=== PATIENT | female | born 1955 | race Caucasian/White ===

== ENCOUNTER → 2024-08-14 | Outpatient (CLI) | payer MEDICARE, SELFPAY ==
--- NOTE | 2024-08-14 13:15 | XR_ITS ---
Examination: Screening digital mammography, bilateral Computer aided detection 3-D breast Tomosynthesis, bilateral Date and time of exam: August 14, 2024 1248 hours Compared to mammograms dating to September 08, 2022 Indication: Screening Technique: Nonmagnified MLO, CC views of the breasts to been obtained, reconstructed from 3-D Tomosynthesis images. R2 computer aided detection program utilized for evaluation of suspicious masses and/or abnormal calcifications. 3-D Tomosynthesis images obtained. Findings: The breasts are heterogeneously dense, which may obscure small masses Benign calcifications. No interval suspicious masses Impression: BI-RADS category II: Benign Findings. Recommend 1 year follow-up mammogram.
== END | disposition home or self-care (01) ==
LOC: CDIM 12:37
PROVIDERS: Referring Provider Family Medicine; Visit Provider Family Medicine
DX: Z12.31 Encounter for screening mammogram for malignant neoplasm of breast (principal); R92.323 Mammographic fibroglandular density, bilateral breasts; R92.1 Mammographic calcification found on diagnostic imaging of breast
CPT/HCPCS: 77063; 77067

== ENCOUNTER 2024-10-12 23:34 | Inpatient (IN) | payer MEDICARE, SELFPAY ==
--- NOTE | 2024-10-13 | XR_ITS ---
Examination: Abdomen AP single view Technique: AP portable supine abdomen, single view Exam date and time: October 13, 2024 1343 hrs. Indications: Nine-hour delayed film post small bowel series today Findings: Contrast in distended small bowel loops Impression: Small bowel obstruction pattern Recommend follow-up films 4:00 PM 6:00 PM, 8:00 PM
--- NOTE | 2024-10-13 | XR_ITS ---
Examination: Abdomen AP single view Technique: AP portable supine abdomen, single view Exam date and time: October 13, 2024, 1752 hours INDICATIONS: 13 hour delayed film for small bowel series today, abdominal pain and distention discrete FINDINGS: High-grade mechanical small bowel obstruction IMPRESSION: High-grade mechanical small bowel obstruction, recommend follow-up films 10:00 PM, 2:00 AM, 6:00 AM
--- NOTE | 2024-10-13 | XR_ITS ---
Examination: Abdomen AP single view Technique: AP portable supine abdomen, single view Exam date and time: October 13, 2024, 1549 hrs. Indications: 11 hour delayed film post small bowel series Findings: Contrast distended small bowel loops Impression: Small bowel obstruction pattern, additional delayed films will be obtained
--- NOTE | 2024-10-13 | XR_ITS ---
Examination: Abdomen AP single view Technique: AP portable supine abdomen, single view Exam date and time: October 13, 2024, 1748 hours INDICATIONS: 15 hour delayed film for small bowel series today abdominal pain and distention this week FINDINGS: Multiple contrasted distended small bowel loops IMPRESSION: High-grade mechanical small bowel obstruction
[2024-10-13 00:05] VITALS: BP 146/80; PULSE 78; RESP 22; TEMP 36.4; O2SAT 100
--- NOTE | 2024-10-13 00:11 | EKG_ITS ---
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
--- NOTE | 2024-10-13 00:15 | PD.EDRME ---
Rapid Medical Screening Exam RME Arrival date/time: 10/12/24 23:34 Chief Complaint: Abdominal Pain Time Seen by Provider: 10/12/24 23:37 Vital signs: Vital Signs Temperature 97.5 F 10/13/24 00:05 Pulse Rate 78 10/13/24 00:05 Respiratory Rate 22 H 10/13/24 00:05 Blood Pressure 146/80 H 10/13/24 00:05 Pulse Oximetry (%) 100 10/13/24 00:05 Oxygen Delivery Method Room Air 10/13/24 00:05 E Narrative: Abdominal pain, nausea/vomiting started tonight. Hx hiatal hernia.
--- NOTE | 2024-10-13 00:19 | XR_ITS ---
Examination: CT abdomen with intravenous contrast CT pelvis with intravenous contrast 2-D coronal reconstructions 2-D sagittal reconstructions Date and time of exam:October 13, 2024 0221 hours INDICATIONS: Onset abdominal pain today. CTDI: vol (mGy) 7. DLP: (mGycm) 371. Technique: Multiple axial sections of the abdomen and pelvis have been obtained. 64 slice high-resolution scanner used. 3 mm axial sections have been obtained, post intravenous injection of 60 cc Isovue 370 2-D sagittal, coronal reconstructions obtained. Low dose protocols were performed. One or more of the following dose reduction techniques were used; automated exposure control, adjustment of the mA and/or KV according to patient size, use of iterative reconstruction technique. Findings: Mild fluid subcapsular to the liver and spleen, no liver or splenic lesion No gallstones No pancreatic or adrenal mass Mild bilateral renal parenchymal scar formation Aorta normal size Abnormal multiple fluid distended small bowel loops extending to ileal level Normal appendix No diverticulitis Mild free fluid in the pelvis Urinary bladder wall thickening up to 4 mm No pelvic mass Prominent osteopenia with diffuse advanced lumbar degenerative disc disease IMPRESSION: Mild ascites Small bowel obstruction ileal level
--- NOTE | 2024-10-13 00:30 | PC.NURSE ---
MEDS verified ACTIVE AT 0030
[2024-10-13] MEDS: KETOROLAC INJ 60 MG/2 ML VIAL 30 MG IM (00:34)
[2024-10-13 00:37] LABS: Basophils # (Auto) 0.0 Thou/mm3 (0.0-0.2); Basophils % (Auto) 0 % (0-2.5); Eosinophils # (Auto) 0.1 Thou/mm3 (0.0-0.5); Eosinophils % (Auto) 1 % (0-10); Hematocrit 39.0 % (36.0-46.0); Hemoglobin 13.4 g/dL (12.0-16.0); Immature Granulocytes Auto 0.02 Thou/mm3 (0.00-0.00); Lymphocytes # (Auto) 2.4 Thou/mm3 (1.0-4.8); Lymphocytes % (Auto) 23 % (10-50); Mean Corpuscular HGB Conc 34.4 g/dl (31.0-37.0); Mean Corpuscular Hemoglobin 28.2 pg (25.0-35.0); Mean Corpuscular Volume 82 fL (80-100); Monocytes # (Auto) 0.5 Thou/mm3 (0.0-0.8); Monocytes % (Auto) 5 % (0-12); Neutrophils # (Auto) 7.4 Thou/mm3 (1.8-7.7); Neutrophils % (Auto) 71 % (37-80); Nucleated Red Blood Cell # 0.00 Thou/mm3 (0.00-0.00); Nucleated Red Blood Cell % 0 /100 WBC (0); Platelet Count 230 Thou/mm3 (140-440); RDW Standard Deviation 43.5 fL (36.4-46.3); Red Blood Count 4.76 Miln/mm3 (4.00-5.20); White Blood Count 10.5 Thou/mm3 (3.6-11.0)
[2024-10-13 01:06] LABS: Alanine Aminotransferase 42 U/L (10-49); Albumin, Serum 4.7 gm/dL (3.4-4.8); Albumin/Globulin Ratio 2.2 (1.2-2.2); Alkaline Phosphatase 84 U/L (46-116); Anion Gap 9 (7-16); Aspartate Amino Transferase 38 U/L (0-34); BUN/Creatinine Ratio 13 Ratio (12-20); Bilirubin,Total 1.9 mg/dL (0.3-1.2); Blood Urea Nitrogen 16 mg/dL (9-23); Calcium 10.3 mg/dL (8.3-10.6); Calcium (Corrected) 10.3 mg/dL (8.5-10.1); Carbon Dioxide 26.2 mMol/L (20.0-31.0); Chloride 104 mMol/L (98-107); Creatinine (Component) 1.2 mg/dL (0.6-1.3); Globulin 2.1 gm/dL (2.3-3.5); Glucose 145 mg/dL (74-106); Lipase 41 U/L (12-53); Osmolality,Calculated 281 (275-295); Potassium 4.1 mMol/L (3.4-5.1); Sodium 139 mMol/L (136-145); Total Protein 6.8 gm/dL (5.7-8.2); Troponin I < 0.020 ng/mL (0.0-0.045); eGFR 49 See Note
--- NOTE | 2024-10-13 01:52 | XR_ITS ---
Examination: Abdominal series 3 views including upright PA chest TECHNIQUE: Upright PA chest, AP upright and supine abdomen total 3 views Date and time: October 13, 2024, 0245 hours INDICATIONS: Onset abdominal pain today FINDINGS: Normal heart size Lungs are clear. Moderate stool throughout the colon. No obstruction Prominent thoracolumbar levoscoliosis IMPRESSION: Nonobstructive bowel gas pattern
--- NOTE | 2024-10-13 03:29 | PRELIM_ITS ---
CT scan of the abdomen and pelvis with intravenous contrast (axial sections with sagittal and coronal reformats) October 13, 2024 at 0221 hours Clinical History: Abdominal pain, vomiting. Comparison: No prior study is available for comparison. Findings: The liver, gallbladder, pancreas, spleen, kidneys and adrenals are unremarkable. A qrqav-gz-vwuihtno hiatal hernia is present. There is mild wall thickening of the distal esophagus and stomach, likely due to reflux etiology. The small bowel loops are dilated maximum calibre measuring 2.8 cm, demonstrating fluid levels with possible transition at mid/distal ileum (axial image 133/235). There is mild mesenteric edema. The distal small bowel loops are nondilated. No evidence of bowel wall pneumatosis.The appendix is within normal limits (axial images 142-150/235). There are occasional colonic diverticula without evidence of diverticulitis. There is no mesenteric or retroperitoneal adenopathy.A small fat-containing umbilical hernia is present. The urinary bladder is incompletely distended at the time of the examination and appears mildly thick walled. The uterus and adnexa are unremarkable. There is mild ascites. There is no free air. Degenerative changes are identified in the spine. Mild bibasilar dependent atelectasis is present. Please note that evaluation of bowel loops is limited due to absence of oral contrast. Impression: 1. Findings suggestive of small bowel obstruction with possible transition at mid/distal ileum. 2. Fbkff-om-bfvbmmsy hiatal hernia with possible esophageal reflux. 3. Mild ascites. 4. Other findings as described above. Suggest clinical correlation and follow up accordingly. Discussion Details: Results verbally communicated to : NATALIO Faulkner at 03:17 AM 10/13/2024 Report Electronically Signed By: Nilesh Olivares 10/13/2024 3:28:58 AM [EST]
[2024-10-13 04:07] VITALS: BP 116/81; PULSE 71; RESP 15; TEMP 36.7; O2SAT 98
--- NOTE | 2024-10-13 04:16 | EDNOTE_ITS ---
ED Abdominal Pain RME/HPI General Chief Complaint: Abdominal Pain Stated complaint: ABD PAIN, N/V Time seen by provider: 10/12/24 23:37 Arrival date/time: 10/12/24 23:34 RME / HPI RME / HPI narrative: Abdominal pain, nausea/vomiting started tonight. Hx hiatal hernia. DR ROSARIO MAIN ED EVALUATION: 68 y/o female with Hx of Type II DM, HTN, Hiatal Hernia and SHx of Hysterectomy and presents to ED c/o severe abdominal pain x 10 hours and constipation, nausea, and vomiting x 6 hours. She was recebtly started on Ozempic and attributes her constipation to the medication. Patient began passing gas after arriving to ED. Patient denies bloody stool, fever or any other associated symptoms or aggravating factors. No modifying factors, no radiation, no migration. No pain reported overall. Related Data Previous Rx's ?Medication ?Instructions ?Recorded meclizine 25 mg tablet 25 mg PO Q6HR PRN dizziness #30 08/05/22 tabs Allergies Allergy/AdvReac Type Severity Reaction Status Date / Time No Known Allergies Allergy Verified 10/12/24 23:36 Review of Systems Review of Systems Systems Reviewed: All systems reviewed, normal except as documented Past Medical History Past Medical History CARDIAC: Positive Hypercholesterolemia and Hypertension GASTROINTESTINAL: Positive Hiatal Hernia ENDOCRINE: Positive Diabetes Mellitus Type 2 Surgical History SURGICAL: Positive Hysterectomy and Section ED Exam Narrative Physical exam: GENERAL APPEARANCE: alert and oriented x 4, well-developed, well-nourished, no acute distress VITALS: All vitals were reviewed and the pulse ox is 98% on room air, which is normal according to my interpretation. HEENT: Normocephalic, atraumatic; pupils equal, round, reactive to light; EOMI; mucous membranes pink, moist; oropharynx clear NECK: Supple LUNGS: CTABL; no wheezes, no rales, no rhonchi HEART: Regular rate, regular rhythm; normal S1, S2; no murmurs ABDOMEN: distended; normal BS; soft, no tenderness, no guarding, no rebound; no masses, no organomegaly, no hernia BACK: no CVA tenderness EXTREMITIES: atraumatic; no edema NEUROLOGIC: awake; alert and oriented x4; cranial nerves II-XII grossly intact; no focal sensory or motor deficits PSYCHIATRIC: appropriate mood and affect SKIN: warm, dry, normal color; no rashes Course Quality Measures none Orders Category Date Time Status Admit to Inpatient Status Routine Admission 10/13/24 04:50 Active Patient Condition Routine Admission 10/13/24 04:50 Ordered Aspiration precautions NOW Care 10/13/24 04:[address] Screening NOW Care 10/13/24 00:19 Active EKG (ED ONLY) *Do not use* NOW Care 10/13/24 00:11 Completed Flu & Pneumonia Vaccine Screen ONCE Care 10/13/24 04:49 Active NPO NOW Care 10/13/24 04:50 Active Notify provider NEEDED Care 10/13/24 04:50 Active Sequential Compression Device QSHIFT Care 10/13/24 04:49 Active Consult to General Surgery Stat Cons 10/13/24 04:53 Ordered Diet NPO (NOW) Diet 10/13/24 04:[address] abdomen pelvis w con Stat Exams 10/13/24 00:19 Taken EKG (ED Only) Stat Exams 10/13/24 00:11 Draft XR abdomen series w chest 1V Stat Exams 10/13/24 01:52 Taken XR small bowel single contrast Stat Exams 10/13/24 04:49 Ordered CBC AM DRAW Lab 10/13/24 05:00 Ordered CBC AM DRAW Lab 10/14/24 05:00 Ordered CBC AM DRAW Lab 10/15/24 05:00 Ordered CBC Stat Lab 10/13/24 00:27 Completed CMP [Comprehensive Metabolic Panel] Stat Lab 10/13/24 00:27 Completed Comprehensive Metabolic Panel AM DRAW Lab 10/13/24 05:00 Ordered Comprehensive Metabolic Panel AM DRAW Lab 10/14/24 05:00 Ordered Comprehensive Metabolic Panel AM DRAW Lab 10/15/24 05:00 Ordered Lipase Stat Lab 10/13/24 00:27 Completed Magnesium AM DRAW Lab 10/13/24 05:00 Ordered Magnesium AM DRAW Lab 10/14/24 05:00 Ordered Magnesium AM DRAW Lab 10/15/24 05:00 Ordered Phosphorous AM DRAW Lab 10/14/24 05:00 Ordered Phosphorous AM DRAW Lab 10/15/24 05:00 Ordered Phosphorous AM DRAW Lab 10/16/24 05:00 Ordered Troponin I Stat Lab 10/13/24 00:27 Completed UA [Urinalysis] Stat Lab 10/13/24 04:11 Completed Acetaminophen Tab [Tylenol Tab] Med 10/13/24 04:49 Active 1,000 mg PO Q6H PRN Acetaminophen Tab [Tylenol Tab] Med 10/13/24 04:49 Active 650 mg PO Q6H PRN Ketorolac Inj [Toradol Inj] Med 10/13/24 00:22 Discontinued 30 mg IM X1 ONE Morphine Inj Med 10/13/24 04:49 Active 2 mg IVP Q4H PRN Ondansetron Inj [Zofran Inj] Med 10/13/24 04:49 Active 4 mg IVP Q6H PRN Ondansetron Odt [Zofran Odt] Med 10/13/24 00:22 Discontinued 4 mg PO X1 ONE Sodium Chloride 0.9% 1000 ml [Ns] 1,000 ml Med 10/13/24 05:00 Active IV 75 mls/hr Sodium Chloride 0.9% 1000 ml [Ns] 1,000 ml Med 10/13/24 04:26 Active IV 999 mls/hr Code Status Routine Oth 10/13/24 04:49 Ordered Vital Signs Vital signs: Vital Signs Temperature 97.5 F 10/13/24 00:05 Pulse Rate 78 10/13/24 00:05 Respiratory Rate 22 H 10/13/24 00:05 Blood Pressure 146/80 H 10/13/24 00:05 Pulse Oximetry (%) 100 10/13/24 00:05 Oxygen Delivery Method Room Air 10/13/24 00:05 Abdominal Pain MDM MDM Narrative MDM Narrative:: Scribe Attestation: IMargoth am scribing for and in the presence of Dr. Rosario. Provider Notation: Although this document has been carefully reviewed, there may still be some phonetic and other typographical errors.? These errors are purely grammatical due to imperfections in the software program and should not be construed in any way to? compromise the substance of the patient's medical care during this visit. Patient data External records reviewed:: [facility] previous records (Reviewed prior ED records from 08/05/22. Patient was seen for Benign paroxysmal positional vertigo.) Clinical information provided by:: patient Social determinants that could affect healthcare access:: none Patient has the following chronic illnesses:: Hypercholesterolemia, Hypertension, Hiatal Hernia, Diabetes Mellitus Type 2 How is presenting disease/condition affected by chronic disease/condition?: exacerbated by Evaluation data The following diagnostics were reviewed and interpreted by me:: lab results, radiology exam(s) and EKG tracing(s) (0038: EKG manual reading, my interpretation: sinus rhythm, rate: 77 bpm, moderate artifacts, non-specific T- wave abnormalities, no acute ischemic changes.) Lab and/or radiology exams considered but not ordered:: None Interpretation Summary: RADIOLOGY Chest/Abdomen X-Ray: Pending official radiology report. Abdomen/Pelvis CT: CT scan of the abdomen and pelvis with intravenous contrast (axial sections with sagittal and coronal reformats) October 13, 2024 at 0221 hours Clinical History: Abdominal pain, vomiting. Comparison: No prior study is available for comparison. Findings: The liver, gallbladder, pancreas, spleen, kidneys and adrenals are unremarkable. A almqt-xt-fqnsruyj hiatal hernia is present. There is mild wall thickening of the distal esophagus and stomach, likely due to reflux etiology. The small bowel loops are dilated maximum calibre measuring 2.8 cm, demonstrating fluid levels with possible transition at mid/distal ileum (axial image 133/235). There is mild mesenteric edema. The distal small bowel loops are nondilated. No evidence of bowel wall pneumatosis.The appendix is within normal limits (axial images 142-150/235). There are occasional colonic diverticula without evidence of diverticulitis. There is no mesenteric or retroperitoneal adenopathy.A small fat-containing umbilical hernia is present. The urinary bladder is incompletely distended at the time of the examination and appears mildly thick walled. The uterus and adnexa are unremarkable. There is mild ascites. There is no free air. Degenerative changes are identified in the spine. Mild bibasilar dependent atelectasis is present. Please note that evaluation of bowel loops is limited due to absence of oral contrast. Impression: 1. Findings suggestive of small bowel obstruction with possible transition at mid/distal ileum. 2. Htcvu-gm-nvhohyop hiatal hernia with possible esophageal reflux. 3. Mild ascites. 4. Other findings as described above. Suggest clinical correlation and follow up accordingly. Discussion Details: Results verbally communicated to : NATALIO Faulkner at 03:17 AM 10/13/2024 Report Electronically Signed By: Nilesh Olivares 10/13/2024 3:28:58 AM [EST] Medications / Prescriptions Medications or Prescriptions considered but not ordered:: None Medication administrations:: Medication Administration History Acetaminophen (Acetaminophen 325 Mg Tablet) 650 mg PO Q6H PRN PRN Reason: Fever >100.4 Stop: 11/12/24 04:48 Acetaminophen (Acetaminophen 325 Mg Tablet) 1,000 mg PO Q6H PRN PRN Reason: PAIN SCALE 1-3 (mild Stop: 11/12/24 04:48 Dextrose (Dextrose 50%-Water Inj 50 Ml Syringe) 25 ml IV Q15MIN PRN PRN Reason: BG 50-70 responsive npo pt Stop: 11/12/24 04:54 Dextrose (Dextrose 50%-Water Inj 50 Ml Syringe) 50 ml IV Q15MIN PRN PRN Reason: BG <50 OR BG <70 & pt unresponsive Stop: 11/12/24 04:54 Glucagon (Glucagon Inj 1 Mg Vial) 1 mg IM Q15MIN PRN PRN Reason: BG <70, and no IV access Sodium Chloride (Ns) 1,000 mls @ 999 mls/hr IV .Q1H1M ONE Stop: 10/13/24 05:26 Last Admin: 10/13/24 04:43 Dose: 999 mls/hr Documented By: PINOR Sodium Chloride (Ns) 1,000 mls @ 75 mls/hr IV .[id number] SEBASTIÁN Stop: 11/12/24 04:59 Insulin Human Lispro (Insulin Lispro (Admelog) 1 Unit/0.01 Ml Unit) 0 unit SC Q6HR SEBASTIÁN; Protocol Stop: 11/12/24 05:59 Morphine Sulfate (Morphine Sulf Inj 10 Mg/Ml Vial) 2 mg IVP Q4H PRN PRN Reason: PAIN SCALE 4-10(Mod-Sev Stop: 10/18/24 04:48 Ondansetron HCl (Ondansetron Inj 2 Mg/Ml Inj 2 Ml) 4 mg IVP Q6H PRN; Protocol PRN Reason: NAUSEA OR VOMITING Stop: 11/12/24 04:48 Discontinued Medications Ketorolac Tromethamine (Ketorolac Inj 60 Mg/2 Ml Vial) 30 mg IM X1 ONE Stop: 10/13/24 00:23 Last Admin: 10/13/24 00:34 Dose: 30 mg Documented By: IVY Ondansetron HCl (Ondansetron Odt 4 Mg Tabrap) 4 mg PO X1 ONE; Protocol Stop: 10/13/24 00:23 Last Admin: 10/13/24 00:34 Dose: Not Given Documented By: IVY Non-Admin Reason: Patient Refused See above Consultations Consultation(s) initiated? (list below): Yes Consultation #1 (Physician, Specialty, Details): Discussed with Dr. Dumont for admission. Reviewed the patient?s HPI, PMHx, lab and/or radiology results. Discussed treatment plan. Will consult an admission to the hospitalist. Time: 04:20 Diagnosis Differential diagnosis abdominal pain: abdominal pain, acute appendicitis, calculus of kidney, constipation, diverticulitis, gastroenteritis, pancreatitis and small bowel obstruction Most likely diagnosis given after review of the tests above:: Small bowel obstruction Admission Indicated Admission indicated?: indicated Explain why admission is indicated or not indicated:: Small bowel obstruction Admission Request Was there a request for admission?: Yes Admission Attestation Admission request attestation: Discussed case with [] from Hospitalist service regarding admission. Discussed patients ED course, exam findings, labs, and radiology results. The Hospitalist [agrees,declines] to accept the patient for admission. Disposition Plan Disposition Plan: Admit Discharge Plan Plan Patient Disposition: Admit Acute Care w/in Hospital Problem List Clinical Impression: Small bowel obstruction
[2024-10-13 04:17] LABS: Collection Type, Urine Clean Catch
[2024-10-13 04:43] LABS: Bilirubin,Urine Negative (Negative); Blood,Urine Negative (Negative); Clarity,Urine Clear (Clear/Hazy); Color,Urine Yellow (Lt Yel-Yel); Glucose, Urine Negative (Negative); Ketones,Urine 1+ (Negative); Leukocyte Esterase,Urine Positive (Negative); Nitrite,Urine Negative (Negative); PH,Urine 7.0 (5.0-7.0); Protein,Urine Trace (Neg - Trace); RBC,Urine 6 /hpf (0-3); Squamous Epithelial Cell,Urine 2 /hpf (0-5); Urobilinogen,Urine Negative mg/dL (0.0-1.0); WBC,Urine 42 /hpf (0-5)
[2024-10-13] MEDS: SODIUM CHLORIDE 0.9% 1000 ML 1,000 ML 999 ML IV (04:43)
--- NOTE | 2024-10-13 04:49 | XR_ITS ---
Examination: Small bowel series with KUB AP abdomen 6 views Date and time: October 13, 2024, 0521 hours INDICATIONS: Abdominal pain and distention this week, small bowel obstruction on CT abdomen and pelvis October 13, 2024 0221 hours TECHNIQUE AND FINDINGS: Patient received 120 cc Gastrografin, AP abdomen films, immediate, 30 minutes, 1 hour,. Retrocardiac gastric hernia Distended small bowel loops extending to ileal level on the one-hour film IMPRESSION: Small bowel obstruction pattern. Recommend follow-up abdomen films 9:00 AM, 11:00 AM, 1:00 PM
[2024-10-13 04:53] LABS: Specific Gravity,Urine <= 1.005 (1.001-1.035)
--- NOTE | 2024-10-13 04:54 | PD.RESHP ---
Documentation for date of: 10/13/24 HPI History of Present Illness Chief complaint: Abdominal pain History of present illness: 68-year-old female with past medical history of diabetes, hiatal hernia, hypertension, hyperlipidemia who presented to the ED due to abdominal pain. Patient states that around 5-6 PM October 12, 2024 she developed 12 out of 10 abdominal pain as well as nausea and vomiting. At first patient attributed the pain to her hiatal hernia however pain got so bad that she decided to come to the ER. Patient states that since she started Ozempic on March 2024 she has been unable to have bowel movements she states she usually goes once a week. Due to the pain and vomiting patient decided to come to the ER. While in the ER patient had a hard bowel movement around 3 AM 10/13/2024 and her last episode of vomiting was around midnight. She denies any fever, chills, shortness of breath, palpitations, chest pain, recent travel, sick contacts. ED course: ED vitals: BP 146/80, HR 78, RR 22, saturating 100% on room air ED labs: CBC unremarkable, T. bili 1.9, AST 38, UA negative, CT scan abdomen pelvis shows small bowel obstruction In the ED patient received 1 L NS, Toradol PMHx: As above SX Hx: Hysterectomy, C-sections, toe surgery Social Hx: Denies cigarette use, denies illicit substances including THC, denies alcohol use FH X: Unknown Review of Systems Review of Systems Systems Reviewed: All systems reviewed, normal except as documented Narrative Review of Systems: All 12 systems reviewed and found negative unless otherwise stated HPI Exam Vital Signs Temp Pulse Resp BP Pulse Ox O2 Del Method 98.1 F 71 15 116/81 98 Room Air 10/13/24 04:07 10/13/24 04:07 10/13/24 04:07 10/13/24 04:07 10/13/24 04:07 10/13/24 04:07 Narrative Exam Physical Exam GENERAL: NAD, AAOx3 HEENT: Moist mucosa. Eyes open, symmetrical, & clear CARDIO: Heart RRR, no obvious murmurs PULM: No noted coughing/dyspnea CTA B/L, no R/W/R GI: Abdomen soft, distended, pain on palpation epigastric region. Hypoactive bowel sounds SKIN/MSK/EXT: No wounds/rashes/edema/amputations, no pain on palpation. Pedal pulses present B/L NEURO: AAOx3, no focal neuro deficits, able to move all 4 extremities Results: Labs 10/13/24 05:15 10/13/24 00:27 Labs: Short CBC 10/13/24 Range/Units 00:27 WBC 10.5 (3.6-11.0) Thou/mm3 Hgb 13.4 (12.0-16.0) g/dL Hct 39.0 (36.0-46.0) % Plt Count 230 (140-440) Thou/mm3 BMP 10/13/24 00:27 Sodium 139 Potassium 4.1 Chloride 104 Carbon Dioxide 26.2 BUN 16 Creatinine 1.2 Glucose 145 H Calcium 10.3 Cardiac Enzymes 10/13/24 Range/Units 00:27 Troponin I < 0.020 (0.0-0.045) ng/mL Liver Function 10/13/24 Range/Units 00:27 Total Bilirubin 1.9 H (0.3-1.2) mg/dL AST 38 H (0-34) U/L ALT 42 (10-49) U/L Alkaline Phosphatase 84 (46-116) U/L Albumin 4.7 (3.4-4.8) gm/dL Urine 10/13/24 Range/Units 04:11 Urine Color Yellow (Lt Yel-Yel) Urine Clarity Clear (Clear/Hazy) Urine pH 7.0 (5.0-7.0) Ur Specific [place] <= 1.005 (1.001-1.035) Urine Protein Trace (Neg - Trace) Urine Glucose (UA) Negative (Negative) Quality Measures Quality Measures none Advance care planning discussed with:: patient and spouse Medications Home Medications and Allergies Allergies Allergy/AdvReac Type Severity Reaction Status Date / Time No Known Allergies Allergy Verified 10/12/24 23:36 Visit Medications Sodium Chloride (Ns) 1,000 mls @ 999 mls/hr IV .Q1H1M ONE Stop: 10/13/24 05:26 Last Admin: 10/13/24 04:43 Dose: 999 mls/hr Discontinued Medications Ketorolac Tromethamine (Ketorolac Inj 60 Mg/2 Ml Vial) 30 mg IM X1 ONE Stop: 10/13/24 00:23 Last Admin: 10/13/24 00:34 Dose: 30 mg Ondansetron HCl (Ondansetron Odt 4 Mg Tabrap) 4 mg PO X1 ONE; Protocol Stop: 10/13/24 00:23 Last Admin: 10/13/24 00:34 Dose: Not Given Assessment & Plan Plan 68-year-old female with past medical history of diabetes, hiatal hernia, hypertension, hyperlipidemia who presents to the ED with abdominal pain. #SBO Likely secondary to surgical adhesions Last bowel movement: October 13, 2024 at 3 AM Last meal: October 12, 2024 at 5 PM Last vomit: October 13, 2024, midnight Currently passing flatus or burping: No CT scan abdomen pelvis shows small bowel obstruction ? Zofran for nausea vomiting ? Gastrografin study ? IV fluids ? N.p.o. ? Pain control ? General Surgery consulted, appreciate recs #Diabetes mellitus type 2 Last A1c: 6.5, 2022 ? SSI ? Hypoglycemia protocol in place #Hypertension #Hyperlipidemia Health Maintenance: Disposition: MedSurg Fluids: NS Feeding: N.p.o. Thrombo prophylaxis: SCDs Gastric Ulcer prophylaxis: None CODE STATUS: Full code Case discussed with my attending Dr. Nara Bello MD PGY-1 Disclaimer: Despite multiple revisions, due to the dictation software being used, the document bellow may not be free of grammatical errors including phonetic/typographic errors. However, this does not deter from our commitment to providing health care in the patient's best interest in mind. Attending Provider Attestation/Addendum 68-year-old female with diabetes, hypertension, hyperlipidemia, hiatal hernia being admitted for partial small bowel obstruction. Check SBFT. I discussed with and supervised the resident physician who took care of this patient. I agree with the assessment and plan as above.
[2024-10-13 05:23] LABS: Basophils # (Auto) 0.0 Thou/mm3 (0.0-0.2); Basophils % (Auto) 0 % (0-2.5); Eosinophils # (Auto) 0.0 Thou/mm3 (0.0-0.5); Eosinophils % (Auto) 0 % (0-10); Hematocrit 34.5 % (36.0-46.0); Hemoglobin 11.8 g/dL (12.0-16.0); Immature Granulocytes Auto 0.03 Thou/mm3 (0.00-0.00); Lymphocytes # (Auto) 1.5 Thou/mm3 (1.0-4.8); Lymphocytes % (Auto) 21 % (10-50); Mean Corpuscular HGB Conc 34.2 g/dl (31.0-37.0); Mean Corpuscular Hemoglobin 28.2 pg (25.0-35.0); Mean Corpuscular Volume 83 fL (80-100); Monocytes # (Auto) 0.4 Thou/mm3 (0.0-0.8); Monocytes % (Auto) 5 % (0-12); Neutrophils # (Auto) 5.5 Thou/mm3 (1.8-7.7); Neutrophils % (Auto) 74 % (37-80); Nucleated Red Blood Cell # 0.00 Thou/mm3 (0.00-0.00); Nucleated Red Blood Cell % 0 /100 WBC (0); Platelet Count 193 Thou/mm3 (140-440); RDW Standard Deviation 44.1 fL (36.4-46.3); Red Blood Count 4.18 Miln/mm3 (4.00-5.20); White Blood Count 7.4 Thou/mm3 (3.6-11.0)
[2024-10-13 06:21] LABS: Glucose Estimated Average 105 mg/dL (80-131); Hemoglobin A1C 5.3 % Hgb (4.8-6.0)
[2024-10-13] MEDS: SODIUM CHLORIDE 0.9% 1000 ML 1,000 ML 75 ML IV (06:30)
--- NOTE | 2024-10-13 06:42 | PC.NURSE ---
Spoke to Dr. Chapman pt started vomiting. Provider putting orders in for for NG tube insertion. pt does not want nausea meds at this time.
[2024-10-13 06:56] LABS: Alanine Aminotransferase 35 U/L (10-49); Albumin, Serum 4.0 gm/dL (3.4-4.8); Albumin/Globulin Ratio 2.2 (1.2-2.2); Alkaline Phosphatase 70 U/L (46-116); Anion Gap 6 (7-16); Aspartate Amino Transferase 31 U/L (0-34); BUN/Creatinine Ratio 15 Ratio (12-20); Bilirubin,Total 1.6 mg/dL (0.3-1.2); Blood Urea Nitrogen 17 mg/dL (9-23); Calcium 9.4 mg/dL (8.3-10.6); Calcium (Corrected) 9.4 mg/dL (8.5-10.1); Carbon Dioxide 26.8 mMol/L (20.0-31.0); Chloride 107 mMol/L (98-107); Creatinine (Component) 1.1 mg/dL (0.6-1.3); Globulin 1.8 gm/dL (2.3-3.5); Glucose 109 mg/dL (74-106); Magnesium 2.1 mg/dL (1.6-2.6); Osmolality,Calculated 281 (275-295); Potassium 4.2 mMol/L (3.4-5.1); Sodium 140 mMol/L (136-145); Total Protein 5.8 gm/dL (5.7-8.2); eGFR 55 See Note
[2024-10-13] MEDS: ONDANSETRON INJ 2 MG/ML INJ 2 ML 4 MG IVP ×2 (07:46→22:14)
[2024-10-13] MEDS: MORPHINE SULF INJ 10 MG/ML VIAL 2 MG IVP ×2 (07:46→17:42)
[2024-10-13 08:15] VITALS: BMI 25.3
--- NOTE | 2024-10-13 09:00 | XR_ITS ---
Examination: Abdomen AP single view Technique: AP portable supine abdomen, single view Exam date and time: October 13, 2024, 0838 hrs. Indications: Abdominal pain and distention this week, forearm delayed film post small bowel series today Findings: Contrast distended small bowel loops Impression: Small bowel obstruction pattern. Recommend follow-up abdomen films 10:00 AM, 12 noon, 2:00 PM
--- NOTE | 2024-10-13 09:31 | PC.NURSE ---
Admitting Dr notified that pt refuses NG Tube. Pt has been educated to the risks of continued vomiting, aspiration and . Pt continues to refuse NG Tube
[2024-10-13] MEDS: cefTRIAXone/D5w 1gm IV premix 1 GM/50 ML BAG IV (10:24)
[2024-10-13 10:25] VITALS: BP 154/96; PULSE 85; RESP 15; TEMP 36; O2SAT 98
[2024-10-13 10:31] LABS: Lactate (Lactic Acid) 1.0 mMol/L (0.4-2.0)
--- NOTE | 2024-10-13 11:00 | XR_ITS ---
Examination: Abdomen AP single view Technique: AP portable supine abdomen, single view Exam date and time: October 13, 2024, 11:32 PM Indications: 6 hour delayed film post small bowel series today abdominal distention Findings: Significant small bowel obstruction pattern Impression: Significant small bowel obstruction pattern, multiple delayed films will be obtained
[2024-10-13 11:09] VITALS: BMI 25.2
[2024-10-13] MEDS: metroNIDAZOLE/NS 500 MG IVPB 500 MG/100 ML BAG 200 MG IV ×2 (11:25→21:32)
--- NOTE | 2024-10-13 12:38 | ESCONSULT_ITS ---
HPI Consult details Consult date: 10/13/24 Reason for consultation narrative: Small bowel obstruction History of present illness: 68-year-old female with history of diabetes, hypertension, hyperlipidemia and hiatal hernia was admitted with abdominal pain with nausea and vomiting. Her symptoms started yesterday in the midepigastrium. The pain was initially intermittent, did not become persistent and progressively worse. She has had mu ltiple episodes of nausea and vomiting. She denies fever, chills, diarrhea or constipation. She denies having similar symptoms in the past. A CT scan was obtained that revealed dilated loops of small bowel concerning for small bowel obstruction. Patient was admitted for further management. Review of Systems Constitutional Constitutional: Denies chills and Denies fever(s) Cardiovascular Cardiovascular: Denies chest pain Respiratory Respiratory: Denies cough Gastrointestinal Gastrointestinal: Reports abdominal pain, Reports nausea and Reports vomiting Genitourinary Genitourinary: Denies difficulty voiding Hematologic/Lymphatic Hematologic/Lymphatic: Denies easy bleeding and Denies easy bruising Past Medical History Surgical History OTHER SURGICAL HX: SARAHY/BSO, , toe surgery Social History SMOKING STATUS: Never smoker SUBSTANCE USE: does not use ALCOHOL: Never Meds Home Medications and Allergies Allergies Allergy/AdvReac Type Severity Reaction Status Date / Time No Known Allergies Allergy Verified 10/12/24 23:36 Exam Vital Signs Temp Pulse Resp BP Pulse Ox O2 Del Method 96.8 F 85 15 154/96 H 98 Room Air 10/13/24 10:25 10/13/24 10:25 10/13/24 10:25 10/13/24 10:25 10/13/24 10:10/13/24 10:25 Constitutional Constitutional: no acute distress Routine Abdominal Exam Comments: Abdomen is soft and nondistended. She has minimal tenderness to deep palpation. She has hypoactive bowel sounds Results Results: Laboratory Laboratory results: results reviewed Results: Imaging CT scan - abdomen: report reviewed and image reviewed CT scan - pelvis: report reviewed and image reviewed Assessment & Plan Additional Assessment Additional comments: Small bowel obstruction. Clinically she has benign abdomen Plan Keep n.p.o. until small bowel series is completed. Patient is advised to increase ambulation. If her symptoms do not improve and continues to have emesis she will require NG tube decompression
[2024-10-13] MEDS: METOCLOPRAMIDE INJ 5 MG/ML VIAL 2 ML 10 MG IVP ×2 (12:46→17:36)
--- NOTE | 2024-10-13 16:13 | ESPR_ITS ---
<Statement entered by All Solorzano MD - 10/14/24 17:23> I All Solorazno MD reviewed the note and agree with the resident's assessment & plan with exceptions as below. I have personally reviewed labs, imaging, home meds/prior records, examined the patient, formulated and discussed management plan with the IM team. 68-year-old female with history history of HTN, DM, obesity on Ozempic has chronic constipation admitted to ED with extensive stool burden and small bowel obstruction. General surgery evaluated the patient and recommended conservative management. Patient had a large bowel movement earlier this morning, difficult to place NG tube and subsequently patient refusal for further attempts. Continue Gastrografin studies, continue Rocephin and metronidazole empirically, continue IV fluid resuscitation, obtain lactate levels. Will closely monitor signs and symptoms for acute abdomen. Documentation for date of: 10/13/24 Subjective Subjective Interval history: Patient is seen and examined at bedside. Patient is admitted overnight in view of small bowel obstruction. Patient reported that she had history of constipation since March 2024 after she started Ozempic Patient is taking prune juice at home, denied laxative use Patient currently does not have abdominal distention no further vomitings, so NG tube is withheld for now. Initially tried to place NG tube but failed twice General surgeon, Dr. Martinez consulted and he recommended to place NG tube if there is any persistent vomitings Continue Gastrografin series for now Exam Vital Signs Temp Pulse Resp BP Pulse Ox O2 Del Method 96.8 F 85 15 154/96 H 98 Room Air 10/13/24 10:25 10/13/24 10:10/13/24 10:10/13/24 10:10/13/24 10:10/13/24 10:25 Narrative Exam General: Awake. HEENT: Normocephalic, atraumatic, mucous membranes moist. Heart: Regular rate and rhythm, no murmurs. Lungs: Clear to auscultation with no wheezing or crackles. Abdomen: Soft, nondistended, nontender, positive but decrease bowel sounds. ?No guarding or rebound tenderness. Neurologic: Alert and oriented x3, no gross neurological deficit, and patient able to move all 4 extremities. Extremities: No edema. Skin: No rash or ecchymoses. Objective Labs 10/13/24 05:15 10/13/24 05:15 Labs: Laboratory Results - last 24 hr 10/13/24 10/13/24 10/13/24 00:27 04:11 05:15 WBC 10.5 7.4 RBC 4.76 4.18 Hgb 13.4 11.8 L Hct 39.0 34.5 L MCV 82 83 MCH 28.2 28.2 MCHC 34.4 34.2 RDW Std Deviation 43.5 44.1 Plt Count 230 193 D Neut % (Auto) 71 74 Lymph % (Auto) 23 21 [place] % (Auto) 5 5 Eos % (Auto) 1 0 Baso % (Auto) 0 0 Neut # (Auto) 7.4 5.5 Lymph # (Auto) 2.4 1.5 [place] # (Auto) 0.5 0.4 Eos # (Auto) 0.1 0.0 Baso # (Auto) 0.0 0.0 Immature Gran # (Auto) 0.02 H 0.03 H Absolute Nucleated RBC 0.00 0.00 Immature Gran % 0 0 Nucleated RBC % 0 0 Sodium 139 140 Potassium 4.1 4.2 Chloride 104 107 Carbon Dioxide 26.2 26.8 Anion Gap 9 6 L BUN 16 17 Creatinine 1.2 1.1 Estim Creat Clear Calc Not Performed. Not Performed. eGFR 49 L 55 L BUN/Creatinine Ratio 13 15 Glucose [address] Glu mg/dL 105 Hemoglobin A1c 5.3 Calculated Osmolality 281 281 Lactic Acid Calcium 10.3 9.4 Corrected Calcium 10.3 H 9.4 Magnesium 2.1 Total Bilirubin 1.9 H 1.6 H AST 38 H 31 ALT 42 35 Alkaline Phosphatase 84 70 Troponin I < 0.020 Total Protein 6.8 5.8 Albumin 4.7 4.0 D Globulin 2.1 L 1.8 L Albumin/Globulin Ratio 2.2 2.2 Lipase 41 Ur Collection Type Clean Catch Urine Color Yellow Urine Clarity Clear Urine pH 7.0 Ur Specific [place] <= 1.005 Urine Protein Trace Urine Glucose (UA) Negative Urine Ketones 1+ A Urine Blood Negative Urine Nitrite Negative Urine Bilirubin Negative Urine Urobilinogen (Auto) Negative Ur Leukocyte Esterase Positive Urine RBC 6 H Urine WBC 42 H Ur Squamous Epith Cells 2 Urine Bacteria None 10/13/24 10:11 WBC RBC Hgb Hct MCV MCH MCHC RDW Std Deviation Plt Count Neut % (Auto) Lymph % (Auto) [place] % (Auto) Eos % (Auto) Baso % (Auto) Neut # (Auto) Lymph # (Auto) [place] # (Auto) Eos # (Auto) Baso # (Auto) Immature Gran # (Auto) Absolute Nucleated RBC Immature Gran % Nucleated RBC % Sodium Potassium Chloride Carbon Dioxide Anion Gap BUN Creatinine Estim Creat Clear Calc eGFR BUN/Creatinine Ratio Glucose Estimated Ave Glu mg/dL Hemoglobin A1c Calculated Osmolality Lactic Acid 1.0 Calcium Corrected Calcium Magnesium Total Bilirubin AST ALT Alkaline Phosphatase Troponin I Total Protein Albumin Globulin Albumin/Globulin Ratio Lipase Ur Collection Type Urine Color Urine Clarity Urine pH Ur Specific [place] Urine Protein Urine Glucose (UA) Urine Ketones Urine Blood Urine Nitrite Urine Bilirubin Urine Urobilinogen (Auto) Ur Leukocyte Esterase Urine RBC Urine WBC Ur Squamous Epith Cells Urine Bacteria Quality Measures Quality Measures none Advance care planning discussed with:: patient Assessment & Plan Assessment Current Active Medications: Generic Name Dose Route Start Last Admin Trade Name Freq PRN Reason Stop Dose Admin Acetaminophen 650 mg 10/13/24 04:49 Acetaminophen 325 Mg Tablet PO 11/12/24 04:48 Q6H PRN Fever >100.4 Acetaminophen 1,000 mg 10/13/24 04:49 Acetaminophen 325 Mg Tablet PO 11/12/24 04:48 Q6H PRN PAIN SCALE 1-3 (mild Dextrose 25 ml 10/13/24 04:55 Dextrose 50%-Water Inj 50 Ml Syringe IV 11/12/24 04:54 Q15MIN PRN BG 50-70 responsive npo pt Dextrose 50 ml 10/13/24 04:55 Dextrose 50%-Water Inj 50 Ml Syringe IV 11/12/24 04:54 Q15MIN PRN BG <50 OR BG <70 & pt unresponsive Glucagon 1 mg 10/13/24 04:55 Glucagon Inj 1 Mg Vial IM Q15MIN PRN BG <70, and no IV access Sodium Chloride 1,000 mls @ 75 mls/hr 10/13/24 05:00 10/13/24 06:30 Ns IV 11/12/24 04:59 75 mls/hr .[id number] SEBASTIÁN Administration Ceftriaxone Sodium/Dextrose 1 gm in 50 mls @ 100 mls/hr 10/13/24 09:51 10/13/24 13:50 Rocephin/D5w 1gm Iv Premix IV 10/20/24 09:50 Infused QDAY SEBASTIÁN Infusion Metronidazole 500 mg in 100 mls @ 200 mls/hr 10/13/24 09:52 10/13/24 13:49 Flagyl 500 Mg Iv IV 10/20/24 09:51 Infused Q8HR SEBASTIÁN Infusion Insulin Human Lispro 0 unit 10/13/24 06:00 10/13/24 11:45 Insulin Lispro (Admelog) 1 Unit/0.01 Ml Unit SC 11/12/24 05:59 Not Given Q6HR SEBASTIÁN Protocol Metoclopramide HCl 10 mg 10/13/24 12:45 10/13/24 12:46 Metoclopramide Inj 5 Mg/Ml Vial 2 Ml IVP 11/12/24 12:44 10 mg Q6HR SEBASTIÁN Administration Protocol Morphine Sulfate 2 mg 10/13/24 04:49 10/13/24 07:46 Morphine Sulf Inj 10 Mg/Ml Vial IVP 10/18/24 04:48 2 mg Q4H PRN Administration PAIN SCALE 4-10(Mod-Sev Ondansetron HCl 4 mg 10/13/24 04:49 10/13/24 07:46 Ondansetron Inj 2 Mg/Ml Inj 2 Ml IVP 11/12/24 04:48 4 mg Q6H PRN Administration NAUSEA OR VOMITING Protocol Plan 68-year-old female with past medical history of diabetes, hiatal hernia, hypertension, hyperlipidemia who presents to the ED with abdominal pain. #SBO Likely secondary to surgical adhesions Last bowel movement: October 13, 2024 at 3 AM Last meal: October 12, 2024 at 5 PM Last vomit: October 13, 2024, midnight Currently passing flatus or burping: No CT scan abdomen pelvis shows small bowel obstruction Plan ? N.p.o. ? IV fluids ? Gastrografin study - IV metocloramide 10mg IVP every 6th hrly ? Zofran for nausea and vomiting as needed ? Pain control ? General Surgery Dr. Martinez consulted and he recommended Gastrografin study, also to place NG tube if patient continues to have persistent vomitings #Diabetes mellitus type 2 -A1c during this admission is 5.3 - Patient lost 50 pounds over the last 6 months and is on Ozempic - Currently using 1 mg of Ozempic every week, last dose is on Monday #Hypertension #Hyperlipidemia Health Maintenance: Disposition: MedSurg Fluids: NS Feeding: N.p.o. Thrombo prophylaxis: SCDs Gastric Ulcer prophylaxis: None CODE STATUS: Full code Patient plan of care was discussed with the attending physician, Dr. Rashad Ludwig, PGY1
[2024-10-13 20:00] VITALS: BP 124/74; PULSE 88; RESP 19; TEMP 36.4; O2SAT 95
[2024-10-14] VITALS: BP 123/86; PULSE 89; RESP 18; TEMP 36.5; O2SAT 95
[2024-10-14] MEDS: METOCLOPRAMIDE INJ 5 MG/ML VIAL 2 ML 10 MG IVP ×5 (00:09→23:58)
[2024-10-14] MEDS: SODIUM CHLORIDE 0.9% 1000 ML 1,000 ML 75 ML IV ×2 (01:44→16:22)
[2024-10-14 04:00] VITALS: BP 131/83; PULSE 87; RESP 16; TEMP 36.4; O2SAT 96
[2024-10-14] MEDS: metroNIDAZOLE/NS 500 MG IVPB 500 MG/100 ML BAG 200 MG IV ×3 (05:35→22:15)
[2024-10-14 06:21] LABS: Basophils # (Auto) 0.0 Thou/mm3 (0.0-0.2); Basophils % (Auto) 0 % (0-2.5); Eosinophils # (Auto) 0.0 Thou/mm3 (0.0-0.5); Eosinophils % (Auto) 0 % (0-10); Hematocrit 37.6 % (36.0-46.0); Hemoglobin 12.8 g/dL (12.0-16.0); Immature Granulocytes Auto 0.04 Thou/mm3 (0.00-0.00); Lymphocytes # (Auto) 1.3 Thou/mm3 (1.0-4.8); Lymphocytes % (Auto) 14 % (10-50); Mean Corpuscular HGB Conc 34.0 g/dl (31.0-37.0); Mean Corpuscular Hemoglobin 28.6 pg (25.0-35.0); Mean Corpuscular Volume 84 fL (80-100); Monocytes # (Auto) 0.3 Thou/mm3 (0.0-0.8); Monocytes % (Auto) 3 % (0-12); Neutrophils # (Auto) 7.7 Thou/mm3 (1.8-7.7); Neutrophils % (Auto) 83 % (37-80); Nucleated Red Blood Cell # 0.00 Thou/mm3 (0.00-0.00); Nucleated Red Blood Cell % 0 /100 WBC (0); Platelet Count 217 Thou/mm3 (140-440); RDW Standard Deviation 46.1 fL (36.4-46.3); Red Blood Count 4.47 Miln/mm3 (4.00-5.20); White Blood Count 9.3 Thou/mm3 (3.6-11.0)
[2024-10-14 06:43] LABS: Alanine Aminotransferase 29 U/L (10-49); Albumin, Serum 4.3 gm/dL (3.4-4.8); Albumin/Globulin Ratio 2.3 (1.2-2.2); Alkaline Phosphatase 67 U/L (46-116); Anion Gap 11 (7-16); Aspartate Amino Transferase 29 U/L (0-34); BUN/Creatinine Ratio 19 Ratio (12-20); Bilirubin,Total 1.5 mg/dL (0.3-1.2); Blood Urea Nitrogen 21 mg/dL (9-23); Calcium 9.5 mg/dL (8.3-10.6); Calcium (Corrected) 9.5 mg/dL (8.5-10.1); Carbon Dioxide 25.5 mMol/L (20.0-31.0); Chloride 109 mMol/L (98-107); Creatinine (Component) 1.1 mg/dL (0.6-1.3); Estimated Creatinine Clearance 34.3 mL/min (>60); Globulin 1.9 gm/dL (2.3-3.5); Glucose 140 mg/dL (74-106); Magnesium 2.1 mg/dL (1.6-2.6); Osmolality,Calculated 293 (275-295); Phosphorous 3.4 mg/dL (2.4-5.1); Potassium 4.1 mMol/L (3.4-5.1); Sodium 145 mMol/L (136-145); Total Protein 6.2 gm/dL (5.7-8.2); eGFR 55 See Note
--- NOTE | 2024-10-14 07:01 | PD.SURPROG ---
Documentation for date of: 10/14/24 Subjective Subjective Narrative: Patient is seen and examined. She is resting comfortably. She has had some nausea but denies vomiting. She states that she may have passed flatus but no bowel movement Exam Vital Signs Temp Pulse Resp BP Pulse Ox O2 Del Method 97.5 F 87 16 131/83 H 96 Room Air 10/14/24 04:00 10/14/24 04:00 10/14/24 04:00 10/14/24 04:00 10/14/24 04:00 10/14/24 04:00 Constitutional Constitutional: no acute distress Routine Abdominal Exam Comments: Abdomen is soft and nondistended. She has hypoactive bowel sounds. Very minimal tenderness to deep palpation, no rebound tenderness or peritonitis at this time Assessment & Plan Assessment Additional comments: Small bowel series shows persistent small bowel obstruction, however clinically she has benign abdomen Plan Will try Dulcolax oral and suppository and repeat x-ray later today
[2024-10-14 08:00] VITALS: BP 134/78; PULSE 80; RESP 18; TEMP 36.2; O2SAT 94
[2024-10-14] MEDS: cefTRIAXone/D5w 1gm IV premix 1 GM/50 ML BAG IV (08:03)
--- NOTE | 2024-10-14 11:00 | XR_ITS ---
Examination: Abdomen AP single view Technique: AP portable supine abdomen, single view Exam date and time: October 14, 2024 1049 hours INDICATIONS: Post small bowel series October 13, 2024, abdominal pain and distention this week. FINDINGS: Contrast distended small bowel loops, but some contrast is present in the colon IMPRESSION: Small bowel obstruction pattern but incomplete
--- NOTE | 2024-10-14 11:07 | EKG_ITS ---
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
[2024-10-14 12:00] VITALS: BP 135/86; PULSE 83; RESP 18; TEMP 36.6; O2SAT 97
--- NOTE | 2024-10-14 14:10 | ESPR_ITS ---
<Statement entered by All Solorzano MD - 10/14/24 17:25> I All Solorzano MD reviewed the note and agree with the resident's assessment & plan with exceptions as below. I have personally reviewed labs, imaging, home meds/prior records, examined the patient, formulated and discussed management plan with the IM team. 68-year-old female with history history of HTN, DM, obesity on Ozempic has chronic constipation admitted to ED with extensive stool burden and small bowel obstruction. General surgery evaluated the patient and recommended conservative management. Patient had a large bowel movement yesterday and is able to pass gas however continues to complain of abdominal pain. Continue Gastrografin studies, continue Rocephin and metronidazole empirically, continue IV fluid resuscitation. Continue laxatives p.o. Dulcolax and per-rectal suppository. Will closely monitor signs and symptoms for acute abdomen. Documentation for date of: 10/14/24 Subjective Subjective Interval history: Patient continues to have mild nausea and vomiting. Repeat x-ray of abdomen showed a complete SBO. Patient has not had bowel movement but is able to pass flatus. General surgeon Dr. Martinez evaluated patient and started on p.o. and suppository Dulcolax. and granddaughter at bedside, updated on patient. Patient n.p.o., will consider starting CLD tomorrow. Exam Vital Signs Temp Pulse Resp BP Pulse Ox O2 Del Method 97.5 F 87 16 131/83 H 96 Room Air 10/14/24 04:00 10/14/24 04:00 10/14/24 04:00 10/14/24 04:00 10/14/24 04:00 10/14/24 04:00 Narrative Exam General: Awake. HEENT: Normocephalic, atraumatic, mucous membranes moist. Heart: Regular rate and rhythm, no murmurs. Lungs: Clear to auscultation with no wheezing or crackles. Abdomen: Soft, nondistended, nontender, positive but decrease bowel sounds. ?No guarding or rebound tenderness. Neurologic: Alert and oriented x3, no gross neurological deficit, and patient able to move all 4 extremities. Extremities: No edema. Skin: No rash or ecchymoses. Objective Labs 10/14/24 05:56 10/14/24 05:56 Labs: Laboratory Results - last 24 hr 10/14/24 05:56 WBC 9.3 RBC 4.47 Hgb 12.8 Hct 37.6 MCV 84 MCH 28.6 MCHC 34.0 RDW Std Deviation 46.1 Plt Count 217 Neut % (Auto) 83 H Lymph % (Auto) 14 [place] % (Auto) 3 Eos % (Auto) 0 Baso % (Auto) 0 Neut # (Auto) 7.7 Lymph # (Auto) 1.3 [place] # (Auto) 0.3 Eos # (Auto) 0.0 Baso # (Auto) 0.0 Immature Gran # (Auto) 0.04 H Absolute Nucleated RBC 0.00 Immature Gran % 0 Nucleated RBC % 0 Sodium 145 Potassium 4.1 Chloride 109 H Carbon Dioxide 25.5 Anion Gap 11 BUN 21 Creatinine 1.1 Estim Creat Clear Calc 34.3 L eGFR 55 L BUN/Creatinine Ratio 19 Glucose 140 H Calculated Osmolality 293 Calcium 9.5 Corrected Calcium 9.5 Phosphorus 3.4 Magnesium 2.1 Total Bilirubin 1.5 H AST 29 ALT 29 Alkaline Phosphatase 67 Total Protein 6.2 Albumin 4.3 Globulin 1.9 L Albumin/Globulin Ratio 2.3 H Quality Measures Quality Measures none Advance care planning discussed with:: other Assessment & Plan Assessment Current Active Medications: Generic Name Dose Route Start Last Admin Trade Name Rogerq PRN Reason Stop Dose Admin Acetaminophen 650 mg 10/13/24 04:49 Acetaminophen 325 Mg Tablet PO 11/12/24 04:48 Q6H PRN Fever >100.4 Acetaminophen 1,000 mg 10/13/24 04:49 Acetaminophen 325 Mg Tablet PO 11/12/24 04:48 Q6H PRN PAIN SCALE 1-3 (mild Sodium Chloride 1,000 mls @ 75 mls/hr 10/13/24 05:00 10/14/24 01:44 Ns IV 11/12/24 04:59 75 mls/hr .[id number] SEBASTIÁN Administration Ceftriaxone Sodium/Dextrose 1 gm in 50 mls @ 100 mls/hr 10/13/24 09:51 10/14/24 08:03 Rocephin/D5w 1gm Iv Premix IV 10/20/24 09:50 100 mls/hr QDAY SEBASTIÁN Administration Metronidazole 500 mg in 100 mls @ 200 mls/hr 10/13/24 09:52 10/14/24 13:46 Flagyl 500 Mg Iv IV 10/20/24 09:51 200 mls/hr Q8HR SEBASTIÁN Administration Metoclopramide HCl 10 mg 10/13/24 12:45 10/14/24 11:28 Metoclopramide Inj 5 Mg/Ml Vial 2 Ml IVP 11/12/24 12:44 10 mg Q6HR SEBASTIÁN Administration Protocol Morphine Sulfate 2 mg 10/13/24 04:49 10/13/24 17:42 Morphine Sulf Inj 10 Mg/Ml Vial IVP 10/18/24 04:48 2 mg Q4H PRN Administration PAIN SCALE 4-10(Mod-Sev Ondansetron HCl 4 mg 10/13/24 04:49 10/13/24 22:14 Ondansetron Inj 2 Mg/Ml Inj 2 Ml IVP 11/12/24 04:48 4 mg Q6H PRN Administration NAUSEA OR VOMITING Protocol Plan 68-year-old female with past medical history of diabetes, hiatal hernia, hypertension, hyperlipidemia who presents to the ED with abdominal pain. #SBO Likely secondary to surgical adhesions Last bowel movement: October 13, 2024 at 3 AM Last meal: October 12, 2024 at 5 PM Last vomit: October 13, 2024, midnight Currently passing flatus or burping: No CT scan abdomen pelvis shows small bowel obstruction Plan ? N.p.o. ? IV fluids ? Gastrografin study - IV metocloramide 10mg IVP every 6th hrly ? Zofran for nausea and vomiting as needed ? Pain control ? General Surgery Dr. Martinez consulted and he recommended Gastrografin study, also to place NG tube if patient continues to have persistent vomitings #Diabetes mellitus type 2 -A1c during this admission is 5.3 - Patient lost 50 pounds over the last 6 months and is on Ozempic - Currently using 1 mg of Ozempic every week, last dose is on Monday - Consider SSI once patient tolerates p.o. intake #Depression - Restarted home med Citalopram #Hypertension #Hyperlipidemia #Hypothyroidism - Restart home med verapamil, citalopram and levothyroxine once patient tolerates p.o. intake Health Maintenance: Disposition: MedSurg, incomplete SBO, no bowel movements Fluids: NS Feeding: N.p.o. Thrombo prophylaxis: SCDs Gastric Ulcer prophylaxis: None CODE STATUS: Full code This patient care was discussed with my attending Dr. Rashad Harkins MD PGY-2 Disclaimer: Minor errors in state trooper may be present since this note was dictated by speech recognition software.
--- NOTE | 2024-10-14 15:28 | PC.SS ---
Patient is alert/oriented. Patient was able to verify demographics. Patient was admitted for sbo. Patient is not on 02 at home. However, patient has a CPAP ([employer]) at home and she brought this in as well. Hx: anxiety and on medication, no hx: substance abuse. Independent with ADL's. No other DME. PCP: Dr. Joseph Gomes. Last appt. was last week. Alt medical decision maker: . Alt medical decision maker: , Pankaj, . D/c plan: return home transportation: family
[2024-10-14 16:00] VITALS: BP 138/79; PULSE 68; RESP 18; TEMP 36.4; O2SAT 95
[2024-10-14 20:00] VITALS: BP 136/81; PULSE 84; RESP 18; TEMP 36.5; O2SAT 97
--- NOTE | 2024-10-14 20:11 | PC.NURSE ---
Patient experiencing multiple episode of vomiting, soiling the bed and reported persistent nausea and vomiting. Two unsuccessful attempts were made to insert NG tube, after which patient refused further attempts. Dr. Dumont was notified and recommended continued encouragement of NG tube insertion. No additional orders or recommendations were provided at this time.
[2024-10-14] MEDS: PHENOL/NA PHENOLATE (Chloraseptic) SPRY 180 ML BTL PO (20:56)
[2024-10-14] MEDS: LIDOCAINE VISCOUS 2% 15 ML UDC PO (21:10)
--- NOTE | 2024-10-14 22:38 | PC.NURSE ---
Third attempt to insert NG tube was performed as per MD recommendations. Despite pre-medications for pain management (see MAR), the procedure was unsuccessful. NG tube insertion was attempted, but resistance was encountered and the tube could not advance. Patient expressed discomfort and was unable to tolerate further attempts. Dr. Dumont notified.
[2024-10-15] VITALS (18 sets, daily range): BP systolic 119–156; BP diastolic 70–92; PULSE 70–87; RESP 12–22; TEMP 36.2–36.8; O2SAT 92–100; BMI 25.2
[2024-10-15] MEDS: ONDANSETRON INJ 2 MG/ML INJ 2 ML 4 MG IVP ×2 (03:08→10:18)
[2024-10-15] MEDS: SODIUM CHLORIDE 0.9% 1000 ML 1,000 ML 75 ML IV (03:10)
[2024-10-15] MEDS: metroNIDAZOLE/NS 500 MG IVPB 500 MG/100 ML BAG 200 MG IV ×3 (05:25→22:15)
[2024-10-15] MEDS: METOCLOPRAMIDE INJ 5 MG/ML VIAL 2 ML 10 MG IVP ×2 (05:25→16:48)
[2024-10-15 05:52] LABS: Basophils # (Auto) 0.0 Thou/mm3 (0.0-0.2); Basophils % (Auto) 0 % (0-2.5); Eosinophils # (Auto) 0.0 Thou/mm3 (0.0-0.5); Eosinophils % (Auto) 0 % (0-10); Hematocrit 37.8 % (36.0-46.0); Hemoglobin 12.2 g/dL (12.0-16.0); Immature Granulocytes Auto 0.03 Thou/mm3 (0.00-0.00); Lymphocytes # (Auto) 1.2 Thou/mm3 (1.0-4.8); Lymphocytes % (Auto) 13 % (10-50); Mean Corpuscular HGB Conc 32.3 g/dl (31.0-37.0); Mean Corpuscular Hemoglobin 28.1 pg (25.0-35.0); Mean Corpuscular Volume 87 fL (80-100); Monocytes # (Auto) 0.4 Thou/mm3 (0.0-0.8); Monocytes % (Auto) 5 % (0-12); Neutrophils # (Auto) 7.3 Thou/mm3 (1.8-7.7); Neutrophils % (Auto) 82 % (37-80); Nucleated Red Blood Cell # 0.00 Thou/mm3 (0.00-0.00); Nucleated Red Blood Cell % 0 /100 WBC (0); Platelet Count 217 Thou/mm3 (140-440); RDW Standard Deviation 48.2 fL (36.4-46.3); Red Blood Count 4.34 Miln/mm3 (4.00-5.20); White Blood Count 8.9 Thou/mm3 (3.6-11.0)
[2024-10-15 06:24] LABS: Alanine Aminotransferase 24 U/L (10-49); Albumin, Serum 4.2 gm/dL (3.4-4.8); Albumin/Globulin Ratio 2.2 (1.2-2.2); Alkaline Phosphatase 59 U/L (46-116); Anion Gap 10 (7-16); Aspartate Amino Transferase 30 U/L (0-34); BUN/Creatinine Ratio 25 Ratio (12-20); Bilirubin,Total 1.3 mg/dL (0.3-1.2); Blood Urea Nitrogen 25 mg/dL (9-23); Calcium 9.6 mg/dL (8.3-10.6); Calcium (Corrected) 9.6 mg/dL (8.5-10.1); Carbon Dioxide 25.1 mMol/L (20.0-31.0); Chloride 111 mMol/L (98-107); Creatinine (Component) 1.0 mg/dL (0.6-1.3); Estimated Creatinine Clearance 37.7 mL/min (>60); Globulin 1.9 gm/dL (2.3-3.5); Glucose 150 mg/dL (74-106); Magnesium 2.2 mg/dL (1.6-2.6); Osmolality,Calculated 297 (275-295); Phosphorous 2.7 mg/dL (2.4-5.1); Potassium 3.8 mMol/L (3.4-5.1); Sodium 146 mMol/L (136-145); Total Protein 6.1 gm/dL (5.7-8.2); eGFR > 60 See Note
--- NOTE | 2024-10-15 07:16 | PC.NURSE ---
Patient vomited 10 times during the city const[place] with at total of 500mls out.
[2024-10-15] MEDS: CITALOPRAM 20 MG TABLET PO (08:07)
[2024-10-15] MEDS: cefTRIAXone/D5w 1gm IV premix 1 GM/50 ML BAG IV (08:07)
[2024-10-15] MEDS: LACTULOSE SYRUP 20 GM/30 ML UDC 30 GM PO (08:42)
--- NOTE | 2024-10-15 09:15 | CHAP ---
Declan was with her daughter. Patient was experiencing stomach issues and I gave some words of sympathy and prayer.
--- NOTE | 2024-10-15 11:08 | ESPR_ITS ---
Documentation for date of: 10/15/24 Subjective Subjective Narrative: Patient is seen and examined. She has persistent abdominal pain with multiple episodes of nausea and vomiting. She has not passed flatus or bowel movement yet. Small bowel series showed persistent small bowel obstruction Exam Vital Signs Temp Pulse Resp BP Pulse Ox O2 Del Method 97.2 F 70 17 154/87 H 96 Room Air 10/15/24 08:00 10/15/24 08:00 10/15/24 08:00 10/15/24 08:00 10/15/24 08:00 10/15/24 08:00 Constitutional Constitutional: mild distress Routine Abdominal Exam Comments: Abdomen is soft but distended she has tenderness to palpation throughout the abdomen, no diffuse peritonitis at this time Assessment & Plan Assessment Additional comments: Persistent small bowel obstruction, failed conservative management Plan Will plan for exploratory laparotomy, possible bowel resection, possible ostomy. Risks include but not limited to infection, bleeding, injury to bowel, surround neurovascular structures, abdominal sepsis and or abdominal abscess, need for further procedure and or operation, pneumonia and blood clot discussed with the patient and her daughter. Benefits and alternatives explained to them, all their questions answered, they agreed and consented to proceed with the operat ion.
--- NOTE | 2024-10-15 12:51 | PD.SUROPNT ---
Date of Procedure 10/15/24 Pre Op Diagnosis Small bowel obstruction Post Op Diagnosis Complete small bowel obstruction from adhesive band Procedure Exploratory laparotomy, lysis of adhesions Findings Complete small bowel obstruction at the level of distal jejunum from adhesive band Procedure Description Patient brought into the operating room in supine position. After administration of general endotracheal anesthesia, patient's abdomen prepped and draped in standard surgical manner. A laparotomy incision was made from above the umbilicus, it was extended caudally to the right and around the umbilicus to just below the umbilicus. Dissection was deepened into soft tissue and anterior abdominal fascia was divided. Upon entering abdominal cavity patient was noted to have minimal amount of yellowish fluid. The proximal small bowel was dilated. The small bowel was eviscerated, nearly distal jejunum there was an adhesive band wrapped around small bowel causing complete bowel obstruction. The adhesive band was lysed and obstruction was released. Proximal to the area of obstruction small bowel was very dilated, distally the small bowel was collapsed. After releasing the adhesive band the area was inspected and appeared to be viable. The small bowel was milked from proximal to distal, the area of adhesive band became widely patent. The remaining was inspected, no further area of obstruction noted. Abdomen and pelvis washed and irrigated, all the fluids were suctioned and the suction fluid returned clear. Hemostasis was adequate and satisfactory. Anterior abdominal fascia was closed with running 0 PDS as well as interrupted sutures with #1 Vicryl. The wound was washed and incision was closed with seda. Sterile dressings applied. Patient tolerated procedure well. She was extubated, breathing spontaneously and without difficulty and was transferred to postanesthesia care in stable condition. Instruments, needles and sponge counts were reported to be correct x 2. Anesthesia GETA Pathology / specimen None Estimated Blood Loss 25 Condition Stable Disposition PACU Surgeon Faizan Martinez MD Surgical Staff Operation Date: 10/15/24 13:15 Case Staff Anesthesiologist: Derick Linder RN First Assistant: Quang Munoz
--- NOTE | 2024-10-15 13:10 | SUR.PHASEI ---
1305 Receive pt from OR via her own bed, abusable, Abdominal midline incision CD&I. NGT to LIS with mod amount green output, Khan to gravity, IV to Left AC leaking and locked. New IV to be placed. No complaint of pain. Monitor.
[2024-10-15] MEDS: KCL 20 mEq/L in D5-1/2NS 20 MEQ/1,000 ML BAG 75 MEQ IV (13:33)
[2024-10-15] MEDS: Morphine Sulfate PF 1 MG/ML PCA VIAL 30 ML 30 MG IV (13:33)
--- NOTE | 2024-10-15 13:59 | ESPR_ITS ---
Documentation for date of: 10/15/24 Subjective Subjective Interval history: Patient examined at bedside today. No acute overnight events. Patient reports she is still having vomiting episodes. She still has not passed gas or had a bowel movement. She is not tolerating liquid at this time. Hemoglobin stable at this time. No complaints this time. Exam Vital Signs Temp Pulse Resp BP Pulse Ox O2 Del Method O2 Flow Rate 98.1 F 76 22 H 156/88 H 100 Room Air 4 10/15/24 13:05 10/15/24 13:05 10/15/24 13:05 10/15/24 13:05 10/15/24 13:05 10/15/24 08:00 10/15/24 13:05 Narrative Exam General: AAOx3 HEENT: Normocephalic, atraumatic, mucous membranes moist. Heart: Regular rate and rhythm, no murmurs. Lungs: Clear to auscultation with no wheezing or crackles. Abdomen: Soft, nondistended, nontender, positive but decrease bowel sounds. ?No guarding or rebound tenderness. Neurologic: Alert and oriented x3, no gross neurological deficit, and patient able to move all 4 extremities. Extremities: No edema. Skin: No rash or ecchymoses. Objective Labs 10/17/24 05:09 10/17/24 05:09 Labs: Laboratory Results - last 24 hr 10/15/24 05:32 WBC 8.9 RBC 4.34 Hgb 12.2 Hct 37.8 MCV 87 MCH 28.1 MCHC 32.3 RDW Std Deviation 48.2 H Plt Count 217 Neut % (Auto) 82 H Lymph % (Auto) 13 [place] % (Auto) 5 Eos % (Auto) 0 Baso % (Auto) 0 Neut # (Auto) 7.3 Lymph # (Auto) 1.2 [place] # (Auto) 0.4 Eos # (Auto) 0.0 Baso # (Auto) 0.0 Immature Gran # (Auto) 0.03 H Absolute Nucleated RBC 0.00 Immature Gran % 0 Nucleated RBC % 0 Sodium 146 H Potassium 3.8 Chloride 111 H Carbon Dioxide 25.1 Anion Gap 10 BUN 25 H Creatinine 1.0 Estim Creat Clear Calc 37.7 L eGFR > 60 BUN/Creatinine Ratio 25 H Glucose 150 H Calculated Osmolality 297 H Calcium 9.6 Corrected Calcium 9.6 Phosphorus 2.7 Magnesium 2.2 Total Bilirubin 1.3 H AST 30 ALT 24 Alkaline Phosphatase 59 Total Protein 6.1 Albumin 4.2 Globulin 1.9 L Albumin/Globulin Ratio 2.2 Quality Measures Quality Measures none Advance care planning discussed with:: patient Assessment & Plan Assessment Current Active Medications: Generic Name Dose Route Start Last Admin Trade Name Freq PRN Reason Stop Dose Admin Acetaminophen 650 mg 10/13/24 04:49 Acetaminophen 325 Mg Tablet PO 11/12/24 04:48 Q6H PRN Fever >100.4 Acetaminophen 1,000 mg 10/13/24 04:49 Acetaminophen 325 Mg Tablet PO 11/12/24 04:48 Q6H PRN PAIN SCALE 1-3 (mild Citalopram Hydrobromide 20 mg 10/15/24 09:00 10/15/24 08:07 Citalopram 20 Mg Tablet PO 11/14/24 08:59 20 mg DAILY SEBASTIÁN Administration Sodium Chloride 1,000 mls @ 75 mls/hr 10/13/24 05:00 10/15/24 03:10 Ns IV 11/12/24 04:59 75 mls/hr .[id number] SEBASTIÁN Administration Ceftriaxone Sodium/Dextrose 1 gm in 50 mls @ 100 mls/hr 10/13/24 09:51 10/15/24 08:07 Rocephin/D5w 1gm Iv Premix IV 10/20/24 09:50 100 mls/hr QDAY SEBASTIÁN Administration Metronidazole 500 mg in 100 mls @ 200 mls/hr 10/13/24 09:52 10/15/24 05:25 Flagyl 500 Mg Iv IV 10/20/24 09:51 200 mls/hr Q8HR SEBASTIÁN Administration Acetaminophen 1,000 mg in 100 mls @ 250 mls/hr 10/15/24 12:58 Ofirmev Inj IV 10/16/24 12:23 Q6HR SEBASTIÁN Potassium Chloride/Dextrose/Sod Cl 20 meq in 1,000 mls @ 75 mls/hr 10/15/24 13:14 10/15/24 13:33 Kcl 20 Meq/L In D5-1/2ns IV 11/14/24 13:13 75 mls/hr .[id number] SEBASTIÁN Administration Metoclopramide HCl 10 mg 10/13/24 12:45 10/15/24 05:25 Metoclopramide Inj 5 Mg/Ml Vial 2 Ml IVP 11/12/24 12:44 10 mg Q6HR SEBASTIÁN Administration Protocol Morphine Sulfate 2 mg 10/13/24 04:49 10/13/24 17:42 Morphine Sulf Inj 10 Mg/Ml Vial IVP 10/18/24 04:48 2 mg Q4H PRN Administration PAIN SCALE 4-10(Mod-Sev Morphine Sulfate 30 mg 10/15/24 13:14 10/15/24 13:33 Morphine Sulfate Pf 1 Mg/Ml [place] Vial 30 Ml IV 10/20/24 13:13 30 mg PER ORDER PRN Administration PAIN Protocol Ondansetron HCl 4 mg 10/13/24 04:49 10/15/24 10:18 Ondansetron Inj 2 Mg/Ml Inj 2 Ml IVP 11/12/24 04:48 4 mg Q6H PRN Administration NAUSEA OR VOMITING Protocol Pantoprazole Sodium 40 mg 10/15/24 11:15 10/15/24 11:24 Pantoprazole Inj 40 Mg Vial IVP 11/14/24 11:14 40 mg QDAY SEBASTIÁN Administration Plan Assessment 68-year-old female with past medical history of diabetes, hiatal hernia, hypertension, hyperlipidemia who presents to the ED with abdominal pain. #SBO Likely secondary to surgical adhesions Last bowel movement: October 13, 2024 at 3 AM Last meal: October 12, 2024 at 5 PM Last vomit: October 13, 2024, midnight Currently passing flatus or burping: No CT scan abdomen pelvis shows small bowel obstruction Patient had repeat chest x-ray which showed incomplete small bowel obstruction Patient will likely need surgery is not tolerating p.o., has not passed gas or bowel movement Patient has had surgical history in the past including hysterectomy and C- section Plan ? Surgery today ? IV fluids ? Gastrografin study - IV metocloramide 10mg IVP every 6th hrly ? Zofran for nausea and vomiting as needed ? Pain control #Diabetes mellitus type 2 -A1c during this admission is 5.3 - Patient lost 50 pounds over the last 6 months and is on Ozempic - Currently using 1 mg of Ozempic every week, last dose is on Monday - Consider SSI once patient tolerates p.o. intake #Depression - Restarted home med Citalopram #Hypertension #Hyperlipidemia #Hypothyroidism - Restart home med verapamil, citalopram and levothyroxine once patient tolerates p.o. intake #Health Maintenance Disposition: MedSurg DVT prophylaxis: SCDs GI prophylaxis: Protonix Diet: N.p.o., IV fluids CODE STATUS: Full code Patient seen and care discussed with my attending physician, Dr. Raina Solitario, PGY-2 Attending Provider Attestation/Addendum I attest that I was physically present for the evaluation, physical examination, lab and imaging review of the patient with the residents. I discussed the case with the residents and agree with the findings and plans of care as documented above. Fortunato Paris MD
--- NOTE | 2024-10-15 14:30 | SUR.PHASEI ---
Pt A&O x4, using MATTRESS FILLING MACHINE TENDER appropriately, Abd. dressing CD&I, matos cath. to drainage with minimum output, NTG to LIS with monerate green output. Report called to recieving RN, all questions answered. Family waiting in patient's room.
[2024-10-15] MEDS: ACETAMINOPHEN IVPB 1,000 MG/100 ML VIAL 250 MG IV (15:31)
[2024-10-16] VITALS (13 sets, daily range): BP systolic 114–133; BP diastolic 62–69; PULSE 63–92; RESP 15–118; TEMP 36.1–36.6; O2SAT 91–96
[2024-10-16] MEDS: ACETAMINOPHEN IVPB 1,000 MG/100 ML VIAL 250 MG IV ×3 (00:29→11:36)
[2024-10-16] MEDS: METOCLOPRAMIDE INJ 5 MG/ML VIAL 2 ML 10 MG IVP ×4 (00:31→17:14)
[2024-10-16] MEDS: metroNIDAZOLE/NS 500 MG IVPB 500 MG/100 ML BAG 200 MG IV ×3 (05:33→21:05)
[2024-10-16] MEDS: KCL 20 mEq/L in D5-1/2NS 20 MEQ/1,000 ML BAG 75 MEQ IV (05:45)
[2024-10-16 06:17] LABS: Basophils # (Auto) 0.0 Thou/mm3 (0.0-0.2); Basophils % (Auto) 0 % (0-2.5); Eosinophils # (Auto) 0.0 Thou/mm3 (0.0-0.5); Eosinophils % (Auto) 0 % (0-10); Hematocrit 35.1 % (36.0-46.0); Hemoglobin 11.5 g/dL (12.0-16.0); Immature Granulocytes Auto 0.01 Thou/mm3 (0.00-0.00); Lymphocytes # (Auto) 2.0 Thou/mm3 (1.0-4.8); Lymphocytes % (Auto) 25 % (10-50); Mean Corpuscular HGB Conc 32.8 g/dl (31.0-37.0); Mean Corpuscular Hemoglobin 28.4 pg (25.0-35.0); Mean Corpuscular Volume 87 fL (80-100); Monocytes # (Auto) 0.5 Thou/mm3 (0.0-0.8); Monocytes % (Auto) 6 % (0-12); Neutrophils # (Auto) 5.5 Thou/mm3 (1.8-7.7); Neutrophils % (Auto) 69 % (37-80); Nucleated Red Blood Cell # 0.00 Thou/mm3 (0.00-0.00); Nucleated Red Blood Cell % 0 /100 WBC (0); Platelet Count 169 Thou/mm3 (140-440); RDW Standard Deviation 48.0 fL (36.4-46.3); Red Blood Count 4.05 Miln/mm3 (4.00-5.20); White Blood Count 8.0 Thou/mm3 (3.6-11.0)
[2024-10-16 07:17] LABS: Alanine Aminotransferase 19 U/L (10-49); Albumin, Serum 3.4 gm/dL (3.4-4.8); Albumin/Globulin Ratio 2.1 (1.2-2.2); Alkaline Phosphatase 46 U/L (46-116); Anion Gap 5 (7-16); Aspartate Amino Transferase 26 U/L (0-34); BUN/Creatinine Ratio 26 Ratio (12-20); Bilirubin,Total 1.1 mg/dL (0.3-1.2); Blood Urea Nitrogen 23 mg/dL (9-23); Calcium 8.8 mg/dL (8.3-10.6); Calcium (Corrected) 9.3 mg/dL (8.5-10.1); Carbon Dioxide 29.2 mMol/L (20.0-31.0); Chloride 115 mMol/L (98-107); Creatinine (Component) 0.9 mg/dL (0.6-1.3); Estimated Creatinine Clearance 41.9 mL/min (>60); Globulin 1.6 gm/dL (2.3-3.5); Glucose 128 mg/dL (74-106); Magnesium 2.0 mg/dL (1.6-2.6); Osmolality,Calculated 301 (275-295); Phosphorous 1.7 mg/dL (2.4-5.1); Potassium 4.3 mMol/L (3.4-5.1); Sodium 149 mMol/L (136-145); Total Protein 5.0 gm/dL (5.7-8.2); eGFR > 60 See Note
[2024-10-16] MEDS: cefTRIAXone/D5w 1gm IV premix 1 GM/50 ML BAG IV (08:36)
[2024-10-16] MEDS: NAPH,KPH MBDB 1 PACKET (1.5 GM) 2 PACKET NG (10:05)
--- NOTE | 2024-10-16 12:07 | PD.SURPROG ---
Documentation for date of: 10/16/24 Subjective Subjective Narrative: Patient is seen and examined. She is resting comfortably, pain is controlled Exam Vital Signs Temp Pulse Resp BP Pulse Ox O2 Del Method O2 Flow Rate 97.8 F 92 17 125/69 95 Nasal Cannula 2 10/16/24 08:00 10/16/24 08:00 10/16/24 08:00 10/16/24 08:00 10/16/24 08:00 10/16/24 08:00 10/16/24 08:00 FiO2 30 10/16/24 06:32 Constitutional Constitutional: no acute distress Routine Abdominal Exam Comments: Abdomen is soft and mildly distended. She has hypoactive bowel sounds. Incision with dressings clean, dry and intact Assessment & Plan Assessment Additional comments: Postop day #1 status post exploratory laparotomy with lysis of adhesions Plan Clamp the NG tube. Patient is advised to increase ambulation. DC Khan catheter PROCEDURES: Procedures Exploratory laparotomy, lysis of adhesions
[2024-10-16] MEDS: DEXTROSE 5%-WATER 1,000 ML 30 ML IV (12:50)
[2024-10-16] MEDS: POTASSIUM PHOS 15 MMOL in SODIUM CHLORIDE 0.9% 250 ML 245 ML 62.5 MMOL IV (13:00)
--- NOTE | 2024-10-16 13:18 | ESPR_ITS ---
<Statement entered by Gonzales Solitario MD - 10/16/24 23:04> I have reviewed the note and agree with the resident's assessment & plan with exceptions as below. I have personally reviewed labs, imaging, home meds/prior records, examined the patient, formulated and discussed management plan with the IM team. Pt is improving. Still has not had bowel movements, or passing gas. Abdominal pain is improving. Will defer to surgery to continue to advance diet. Pt currently has NG on LIS. Patient's sodium today is 149, Free water deficit calculated at 0.7 for sodium correction of 145, as this is likely related to dehydration. Will start D5W 30cc/hr. Phosphorous 1.9 today, will replete with Kphos IV x1, and will D/C KCl IV. Gonzales Solitario, PGY-2 Documentation for date of: 10/16/24 Subjective Subjective Interval history: Patient seen today. No overnight events. Patient is well after exploratory laporotomy yesterday. No complications related to procedure noted at this time. Not passing gas and has not yet had BM. Exam Vital Signs Temp Pulse Resp BP Pulse Ox O2 Del Method O2 Flow Rate 97.7 F 68 16 123/66 94 L Nasal Cannula 2 10/16/24 12:00 10/16/24 12:00 10/16/24 12:00 10/16/24 12:00 10/16/24 12:10/16/24 12:00 10/16/24 12:00 FiO2 30 10/16/24 06:32 Narrative Exam General appearance: a&o X 3, in no apparent distress. HEENT/Neck examination: Normocephalic. Hearing normal. Moist mucous membranes. Chest/Lung examination: Chest wall normal, diaphragm and chest move equally and symmetrically with respiration. No abnormality on auscultation. Heart/Cardiovascular: examination S1 and S2 normal. No murmurs, rubs, or gallops, or extra sounds. No jugular venous distension. Blood pressure equal in both arms. Abdominal examination: Bowel sounds normal; no bruits. No masses or tenderness. Liver and spleen not palpable. No hernias. Neurologic/Psychologic examination: Mental status normal. Moving all 4 limbs well. Objective Labs 10/17/24 05:09 10/17/24 05:09 Labs: Laboratory Results - last 24 hr 10/16/24 05:38 WBC 8.0 RBC 4.05 Hgb 11.5 L Hct 35.1 L MCV 87 MCH 28.4 MCHC 32.8 RDW Std Deviation 48.0 H Plt Count 169 D Neut % (Auto) 69 Lymph % (Auto) 25 [place] % (Auto) 6 Eos % (Auto) 0 Baso % (Auto) 0 Neut # (Auto) 5.5 Lymph # (Auto) 2.0 [place] # (Auto) 0.5 Eos # (Auto) 0.0 Baso # (Auto) 0.0 Immature Gran # (Auto) 0.01 H Absolute Nucleated RBC 0.00 Immature Gran % 0 Nucleated RBC % 0 Sodium 149 H Potassium 4.3 D Chloride 115 H Carbon Dioxide 29.2 Anion Gap 5 L BUN 23 Creatinine 0.9 Estim Creat Clear Calc 41.9 L eGFR > 60 BUN/Creatinine Ratio 26 H Glucose 128 H Calculated Osmolality 301 H Calcium 8.8 Corrected Calcium 9.3 Phosphorus 1.7 L Magnesium 2.0 Total Bilirubin 1.1 AST 26 ALT 19 Alkaline Phosphatase 46 D Total Protein 5.0 L Albumin 3.4 D Globulin 1.6 L Albumin/Globulin Ratio 2.1 Quality Measures Quality Measures none Advance care planning discussed with:: patient Assessment & Plan Assessment Current Active Medications: Generic Name Dose Route Start Last Admin Trade Name Reginaldo PRN Reason Stop Dose Admin Ceftriaxone Sodium/Dextrose 1 gm in 50 mls @ 100 mls/hr 10/13/24 09:51 10/16/24 08:36 Rocephin/D5w 1gm Iv Premix IV 10/20/24 09:50 100 mls/hr QDAY SEBASTIÁN Administration Metronidazole 500 mg in 100 mls @ 200 mls/hr 10/13/24 09:52 10/16/24 05:33 Flagyl 500 Mg Iv IV 10/20/24 09:51 200 mls/hr Q8HR SEBASTIÁN Administration Dextrose 1,000 mls @ 30 mls/hr 10/16/24 12:00 10/16/24 12:50 D5w IV 11/15/24 11:59 30 mls/hr .Q24H SEBASTIÁN Administration Potassium Phosphate 15 mmol/ 250 mls @ 62.5 mls/hr 10/16/24 12:00 10/16/24 13:00 Sodium Chloride IV 10/16/24 15:59 62.5 mls/hr X1 ONE Administration Metoclopramide HCl 10 mg 10/13/24 12:45 10/16/24 11:36 Metoclopramide Inj 5 Mg/Ml Vial 2 Ml IVP 11/12/24 12:44 10 mg Q6HR SEBASTIÁN Administration Protocol Morphine Sulfate 30 mg 10/15/24 13:14 10/15/24 13:33 Morphine Sulfate Pf 1 Mg/Ml [employer] Vial 30 Ml IV 10/20/24 13:13 30 mg PER ORDER PRN Administration PAIN Protocol Ondansetron HCl 4 mg 10/13/24 04:49 10/15/24 10:18 Ondansetron Inj 2 Mg/Ml Inj 2 Ml IVP 11/12/24 04:48 4 mg Q6H PRN Administration NAUSEA OR VOMITING Protocol Pantoprazole Sodium 40 mg 10/15/24 11:15 10/16/24 08:36 Pantoprazole Inj 40 Mg Vial IVP 11/14/24 11:14 40 mg QDAY SEBASTIÁN Administration Plan Assessment 68-year-old female with past medical history of diabetes, hiatal hernia, hypertension, hyperlipidemia who presents to the ED with abdominal pain. #SBO Post Op Day #1 - no complications Secondary to surgical adhesions Exploratory laparotomy performed yesterday - shows complete small bowel obstruction at the level of distal jejunum from adhesive band. Lysis of adhesions done yesterday No flatus or BM since procedure yet Last bowel movement: October 13, 2024 at 3 AM Last meal: October 12, 2024 at 5 PM Last vomit: October 13, 2024, midnight Plan - Clamping NG tube - Continue IV fluids - IV metocloramide 10mg IVP every 6th hrly - Zofran for nausea and vomiting as needed - Pain control #Diabetes mellitus type 2 -A1c during this admission is 5.3 - Patient lost 50 pounds over the last 6 months and is on Ozempic - Currently using 1 mg of Ozempic every week, last dose is on Monday - Consider SSI once patient tolerates p.o. intake #Depression #Hypertension #Hyperlipidemia #Hypothyroidism - Restart home med verapamil, citalopram and levothyroxine once patient tolerates p.o. intake #Health Maintenance Disposition: MedSurg DVT prophylaxis: SCDs GI prophylaxis: Protonix Diet: N.p.o., IV fluids CODE STATUS: Full code Attending Provider Attestation/Addendum I attest that I was physically present for the evaluation, physical examination, lab and imaging review of the patient with the residents. I discussed the case with the residents and agree with the findings and plans of care as documented above. Fortunato Paris MD
[2024-10-16] MEDS: ACETAMINOPHEN 325 MG TABLET PO (22:12)
[2024-10-17] VITALS (7 sets, daily range): BP systolic 95–132; BP diastolic 53–74; PULSE 61–84; RESP 17–20; TEMP 36.1–36.6; O2SAT 92–98
[2024-10-17] MEDS: METOCLOPRAMIDE INJ 5 MG/ML VIAL 2 ML 10 MG IVP ×4 (00:01→17:27)
[2024-10-17] MEDS: metroNIDAZOLE/NS 500 MG IVPB 500 MG/100 ML BAG 200 MG IV ×3 (05:54→21:03)
[2024-10-17 06:15] LABS: Basophils # (Auto) 0.0 Thou/mm3 (0.0-0.2); Basophils % (Auto) 0 % (0-2.5); Eosinophils # (Auto) 0.1 Thou/mm3 (0.0-0.5); Eosinophils % (Auto) 2 % (0-10); Hematocrit 32.3 % (36.0-46.0); Hemoglobin 10.6 g/dL (12.0-16.0); Immature Granulocytes Auto 0.01 Thou/mm3 (0.00-0.00); Lymphocytes # (Auto) 2.3 Thou/mm3 (1.0-4.8); Lymphocytes % (Auto) 34 % (10-50); Mean Corpuscular HGB Conc 32.8 g/dl (31.0-37.0); Mean Corpuscular Hemoglobin 28.5 pg (25.0-35.0); Mean Corpuscular Volume 87 fL (80-100); Monocytes # (Auto) 0.4 Thou/mm3 (0.0-0.8); Monocytes % (Auto) 6 % (0-12); Neutrophils # (Auto) 3.9 Thou/mm3 (1.8-7.7); Neutrophils % (Auto) 57 % (37-80); Nucleated Red Blood Cell # 0.00 Thou/mm3 (0.00-0.00); Nucleated Red Blood Cell % 0 /100 WBC (0); Platelet Count 163 Thou/mm3 (140-440); RDW Standard Deviation 46.5 fL (36.4-46.3); Red Blood Count 3.72 Miln/mm3 (4.00-5.20); White Blood Count 6.8 Thou/mm3 (3.6-11.0)
[2024-10-17 06:46] LABS: Alanine Aminotransferase 19 U/L (10-49); Albumin, Serum 3.1 gm/dL (3.4-4.8); Albumin/Globulin Ratio 2.1 (1.2-2.2); Alkaline Phosphatase 44 U/L (46-116); Anion Gap 5 (7-16); Aspartate Amino Transferase 32 U/L (0-34); BUN/Creatinine Ratio 17 Ratio (12-20); Bilirubin,Total 0.8 mg/dL (0.3-1.2); Blood Urea Nitrogen 12 mg/dL (9-23); Calcium 8.3 mg/dL (8.3-10.6); Calcium (Corrected) 9.0 mg/dL (8.5-10.1); Carbon Dioxide 27.2 mMol/L (20.0-31.0); Chloride 111 mMol/L (98-107); Creatinine (Component) 0.7 mg/dL (0.6-1.3); Estimated Creatinine Clearance 53.9 mL/min (>60); Globulin 1.5 gm/dL (2.3-3.5); Glucose 96 mg/dL (74-106); Magnesium 1.9 mg/dL (1.6-2.6); Osmolality,Calculated 284 (275-295); Phosphorous 2.4 mg/dL (2.4-5.1); Potassium 3.6 mMol/L (3.4-5.1); Sodium 143 mMol/L (136-145); Total Protein 4.6 gm/dL (5.7-8.2); eGFR > 60 See Note
--- NOTE | 2024-10-17 07:50 | PD.SURPROG ---
Documentation for date of: 10/17/24 Subjective Subjective Narrative: Patient is seen and examined. She is resting comfortably. Her NG tube was removed yesterday and she was started on clear liquids. She is tolerating liquids without nausea or vomiting, no bowel movement yet Exam Vital Signs Temp Pulse Resp BP Pulse Ox O2 Del Method O2 Flow Rate 98 F 64 18 113/57 L 92 L Nasal Cannula 2 10/17/24 04:00 10/17/24 07:45 10/17/24 07:45 10/17/24 04:00 10/17/24 07:45 10/17/24 04:00 10/17/24 04:00 FiO2 30 10/17/24 04:00 Constitutional Constitutional: no acute distress Routine Abdominal Exam Comments: Abdomen is soft and nondistended. Bowel sounds are active. Incision is clean, dry and intact Assessment & Plan Assessment Additional comments: Postop day #2 status post exploratory laparotomy with lysis of adhesions Plan Advance to full liquids. Increase ambulation. I will be out of town till Monday, Dr. Lake has graciously agreed to follow this patient in my absence PROCEDURES: Procedures Exploratory laparotomy, lysis of adhesions
[2024-10-17] MEDS: cefTRIAXone/D5w 1gm IV premix 1 GM/50 ML BAG IV (09:01)
[2024-10-17] MEDS: DOCUSATE SOD 100 MG CAPSULE PO ×2 (09:02→21:03)
--- NOTE | 2024-10-17 10:01 | ESPR_ITS ---
<Statement entered by Gonzales Solitario MD - 10/17/24 19:32> I have reviewed the note and agree with the resident's assessment & plan with exceptions as below. I have personally reviewed labs, imaging, home meds/prior records, examined the patient, formulated and discussed management plan with the IM team. Patient continuing to improve, full liquid diet currently. Patient is not passing gas or has had a bowel movement. Patient is ambulating, will order PT for further evaluation. Anticipate discharge within 24 to 48 hours depending on gas and bowel movement. Patient not requiring extensive pain medication, is only using Tylenol p.o. at this time. Repeat hematology and chemistry in AM. Gonzales Solitario, PGY-2 Internal Medicine Documentation for date of: 10/17/24 Subjective Subjective Interval history: Patient seen today. No overnight events. NG tube removed yesterday. Patient is well after exploratory laporotomy 2 days ago. No complications related to procedure noted at this time. Still not passing gas and has not yet had BM. But hear bowel sounds now. No new complaints. Patient is ambulating with walker. Exam Vital Signs Temp Pulse Resp BP Pulse Ox O2 Del Method O2 Flow Rate 97.2 F 84 18 132/68 H 94 L Room Air 2 10/17/24 08:00 10/17/24 08:00 10/17/24 08:00 10/17/24 08:00 10/17/24 08:00 10/17/24 08:00 10/17/24 04:00 FiO2 30 10/17/24 04:00 Objective Objective Narrative Objective Narrative: General appearance: a&o X 3, in no apparent distress. HEENT/Neck examination: Normocephalic. Hearing normal. Moist mucous membranes. Chest/Lung examination: Chest wall normal, diaphragm and chest move equally and symmetrically with respiration. No abnormality on auscultation. Heart/Cardiovascular: examination S1 and S2 normal. No murmurs, rubs, or gallops, or extra sounds. Abdominal examination: Surcial incision healing well, no eythema around site. Bowel sounds normal; no bruits. No masses or tenderness. Neurologic/Psychologic examination: Mental status normal. Moving all 4 limbs well. Labs 10/17/24 05:09 10/17/24 05:09 Labs: Laboratory Results - last 24 hr 10/17/24 05:09 WBC 6.8 RBC 3.72 L Hgb 10.6 L Hct 32.3 L MCV 87 MCH 28.5 MCHC 32.8 RDW Std Deviation 46.5 H Plt Count 163 Neut % (Auto) 57 Lymph % (Auto) 34 [place] % (Auto) 6 Eos % (Auto) 2 Baso % (Auto) 0 Neut # (Auto) 3.9 Lymph # (Auto) 2.3 [place] # (Auto) 0.4 Eos # (Auto) 0.1 Baso # (Auto) 0.0 Immature Gran # (Auto) 0.01 H Absolute Nucleated RBC 0.00 Immature Gran % 0 Nucleated RBC % 0 Sodium 143 Potassium 3.6 D Chloride 111 H Carbon Dioxide 27.2 Anion Gap 5 L BUN 12 Creatinine 0.7 Estim Creat Clear Calc 53.9 L eGFR > 60 BUN/Creatinine Ratio 17 Glucose 96 Calculated Osmolality 284 Calcium 8.3 Corrected Calcium 9.0 Phosphorus 2.4 Magnesium 1.9 Total Bilirubin 0.8 AST 32 ALT 19 Alkaline Phosphatase 44 L Total Protein 4.6 L Albumin 3.1 L Globulin 1.5 L Albumin/Globulin Ratio 2.1 Quality Measures Quality Measures none Advance care planning discussed with:: patient Assessment & Plan Assessment Current Active Medications: Generic Name Dose Route Start Last Admin Trade Name Freq PRN Reason Stop Dose Admin Acetaminophen 325 mg 10/16/24 22:07 10/16/24 22:12 Acetaminophen 325 Mg Tablet PO 11/15/24 22:06 325 mg Q6HR PRN Administration Pain 1-3 and/or Fever >100.1 Hydrocodone Bitart/Acetaminophen 1 tab 10/17/24 07:55 Hydrocodone/Apap 5/325 Tablet PO 10/22/24 07:54 Q6HR PRN PAIN 4-10 Docusate Sodium 100 mg 10/17/24 09:00 10/17/24 09:02 Docusate Sod 100 Mg Capsule PO 11/16/24 08:59 100 mg BID SEBASTIÁN Administration Protocol Ceftriaxone Sodium/Dextrose 1 gm in 50 mls @ 100 mls/hr 10/13/24 09:51 10/17/24 09:01 Rocephin/D5w 1gm Iv Premix IV 10/20/24 09:50 100 mls/hr QDAY SEBASTIÁN Administration Metronidazole 500 mg in 100 mls @ 200 mls/hr 10/13/24 09:52 10/17/24 05:54 Flagyl 500 Mg Iv IV 10/20/24 09:51 200 mls/hr Q8HR SEBASTIÁN Administration Dextrose 1,000 mls @ 30 mls/hr 10/16/24 12:00 10/16/24 12:50 D5w IV 11/15/24 11:59 30 mls/hr .Q24H SEBASTIÁN Administration Metoclopramide HCl 10 mg 10/13/24 12:45 10/17/24 05:53 Metoclopramide Inj 5 Mg/Ml Vial 2 Ml IVP 11/12/24 12:44 10 mg Q6HR SEBASTIÁN Administration Protocol Ondansetron HCl 4 mg 10/13/24 04:49 10/15/24 10:18 Ondansetron Inj 2 Mg/Ml Inj 2 Ml IVP 11/12/24 04:48 4 mg Q6H PRN Administration NAUSEA OR VOMITING Protocol Pantoprazole Sodium 40 mg 10/15/24 11:15 10/17/24 09:01 Pantoprazole Inj 40 Mg Vial IVP 11/14/24 11:14 40 mg QDAY SEBASTIÁN Administration Plan Assessment 68-year-old female with past medical history of diabetes, hiatal hernia, hypertension, hyperlipidemia admitted for SBO. #SBO #Post Op Day #2 - no complications Secondary to surgical adhesions Exploratory laparotomy performed 10/15/24 - shows complete small bowel obstruction at the level of distal jejunum from adhesive band. Lysis of adhesions done No flatus or BM since procedure yet Last bowel movement: October 13, 2024 at 3 AM Last meal: October 12, 2024 at 5 PM Last vomit: October 13, 2024, midnight Plan - Diet full fluids - Gen Surg following - IV metocloramide 10mg IVP every 6th hrly - IV abx Cetriaxone and Metronidazole since (10/13/24 - - Zofran for nausea and vomiting as needed - Pain control #Diabetes mellitus type 2 -A1c during this admission is 5.3 - Patient lost 50 pounds over the last 6 months and is on Ozempic - Currently using 1 mg of Ozempic every week, last dose is on Monday - Consider SSI once patient tolerates p.o. intake #Depression #Hypertension #Hyperlipidemia #Hypothyroidism - Restart home med verapamil, citalopram and levothyroxine once patient tolerates p.o. intake #Health Maintenance Disposition: MedSurg DVT prophylaxis: SCDs GI prophylaxis: Protonix Diet: Full fluids CODE STATUS: Full code Case discussed with my attending, Dr. Paris, and senior resident, Dr. Altaf Thorne MD PGY-1 Attending Provider Attestation/Addendum I attest that I was physically present for the evaluation, physical examination, lab and imaging review of the patient with the residents. I discussed the case with the residents and agree with the findings and plans of care as documented above. Fortunato Paris MD
--- NOTE | 2024-10-17 11:38 | PD.RESPRO ---
Documentation for date of: 10/17/24 Exam Vital Signs Temp Pulse Resp BP Pulse Ox O2 Del Method O2 Flow Rate 97.2 F 84 18 132/68 H 94 L Room Air 2 10/17/24 08:00 10/17/24 08:00 10/17/24 08:00 10/17/24 08:00 10/17/24 08:00 10/17/24 08:00 10/17/24 04:00 FiO2 30 10/17/24 04:00 Objective Labs 10/17/24 05:09 10/17/24 05:09 Labs: Laboratory Results - last 24 hr 10/17/24 05:09 WBC 6.8 RBC 3.72 L Hgb 10.6 L Hct 32.3 L MCV 87 MCH 28.5 MCHC 32.8 RDW Std Deviation 46.5 H Plt Count 163 Neut % (Auto) 57 Lymph % (Auto) 34 [place] % (Auto) 6 Eos % (Auto) 2 Baso % (Auto) 0 Neut # (Auto) 3.9 Lymph # (Auto) 2.3 [place] # (Auto) 0.4 Eos # (Auto) 0.1 Baso # (Auto) 0.0 Immature Gran # (Auto) 0.01 H Absolute Nucleated RBC 0.00 Immature Gran % 0 Nucleated RBC % 0 Sodium 143 Potassium 3.6 D Chloride 111 H Carbon Dioxide 27.2 Anion Gap 5 L BUN 12 Creatinine 0.7 Estim Creat Clear Calc 53.9 L eGFR > 60 BUN/Creatinine Ratio 17 Glucose 96 Calculated Osmolality 284 Calcium 8.3 Corrected Calcium 9.0 Phosphorus 2.4 Magnesium 1.9 Total Bilirubin 0.8 AST 32 ALT 19 Alkaline Phosphatase 44 L Total Protein 4.6 L Albumin 3.1 L Globulin 1.5 L Albumin/Globulin Ratio 2.1 Quality Measures Quality Measures none Assessment & Plan Assessment Current Active Medications: Generic Name Dose Route Start Last Admin Trade Name Freq PRN Reason Stop Dose Admin Acetaminophen 325 mg 10/16/24 22:07 10/16/24 22:12 Acetaminophen 325 Mg Tablet PO 11/15/24 22:06 325 mg Q6HR PRN Administration Pain 1-3 and/or Fever >100.1 Hydrocodone Bitart/Acetaminophen 1 tab 10/17/24 07:55 Hydrocodone/Apap 5/325 Tablet PO 10/22/24 07:54 Q6HR PRN PAIN 4-10 Docusate Sodium 100 mg 07/03/25 09:00 10/17/24 09:02 Docusate Sod 100 Mg Capsule PO 11/16/24 08:59 100 mg BID SEBASTIÁN Administration Protocol Ceftriaxone Sodium/Dextrose 1 gm in 50 mls @ 100 mls/hr 10/13/24 09:51 10/17/24 09:01 Rocephin/D5w 1gm Iv Premix IV 10/20/24 09:50 100 mls/hr QDAY SEBASTIÁN Administration Metronidazole 500 mg in 100 mls @ 200 mls/hr 10/13/24 09:52 10/17/24 05:54 Flagyl 500 Mg Iv IV 10/20/24 09:51 200 mls/hr Q8HR SEBASTIÁN Administration Dextrose 1,000 mls @ 30 mls/hr 10/16/24 12:00 10/16/24 12:50 D5w IV 11/15/24 11:59 30 mls/hr .Q24H SEBASTIÁN Administration Metoclopramide HCl 10 mg 10/13/24 12:45 10/17/24 11:15 Metoclopramide Inj 5 Mg/Ml Vial 2 Ml IVP 11/12/24 12:44 10 mg Q6HR SEBASTIÁN Administration Protocol Ondansetron HCl 4 mg 10/13/24 04:49 10/15/24 10:18 Ondansetron Inj 2 Mg/Ml Inj 2 Ml IVP 11/12/24 04:48 4 mg Q6H PRN Administration NAUSEA OR VOMITING Protocol Pantoprazole Sodium 40 mg 10/15/24 11:15 10/17/24 09:01 Pantoprazole Inj 40 Mg Vial IVP 11/14/24 11:14 40 mg QDAY SEBASTIÁN Administration
--- NOTE | 2024-10-17 13:08 | PC.PT ---
PT eval only. Patient was xI with bed mobility, transfers, and ambulation. Patient is safe to ambulate to the bathroom and in the halls with no AD and no staff. RN made aware.
--- NOTE | 2024-10-17 15:50 | PC.SS ---
rounding: Patient is post op day 3. Full liquid diet. Poss d/c Monday
[2024-10-18] VITALS: BP 154/81; PULSE 65; RESP 18; TEMP 36.3; O2SAT 95
[2024-10-18] MEDS: METOCLOPRAMIDE INJ 5 MG/ML VIAL 2 ML 10 MG IVP (00:35)
[2024-10-18 04:00] VITALS: BP 149/74; PULSE 70; RESP 18; TEMP 36.4; O2SAT 93
[2024-10-18 05:28] LABS: Basophils # (Auto) 0.0 Thou/mm3 (0.0-0.2); Basophils % (Auto) 0 % (0-2.5); Eosinophils # (Auto) 0.2 Thou/mm3 (0.0-0.5); Eosinophils % (Auto) 3 % (0-10); Hematocrit 30.6 % (36.0-46.0); Hemoglobin 10.4 g/dL (12.0-16.0); Immature Granulocytes Auto 0.01 Thou/mm3 (0.00-0.00); Lymphocytes # (Auto) 2.2 Thou/mm3 (1.0-4.8); Lymphocytes % (Auto) 33 % (10-50); Mean Corpuscular HGB Conc 34.0 g/dl (31.0-37.0); Mean Corpuscular Hemoglobin 28.3 pg (25.0-35.0); Mean Corpuscular Volume 83 fL (80-100); Monocytes # (Auto) 0.4 Thou/mm3 (0.0-0.8); Monocytes % (Auto) 6 % (0-12); Neutrophils # (Auto) 3.9 Thou/mm3 (1.8-7.7); Neutrophils % (Auto) 58 % (37-80); Nucleated Red Blood Cell # 0.00 Thou/mm3 (0.00-0.00); Nucleated Red Blood Cell % 0 /100 WBC (0); Platelet Count 162 Thou/mm3 (140-440); RDW Standard Deviation 43.3 fL (36.4-46.3); Red Blood Count 3.67 Miln/mm3 (4.00-5.20); White Blood Count 6.7 Thou/mm3 (3.6-11.0)
[2024-10-18] MEDS: metroNIDAZOLE/NS 500 MG IVPB 500 MG/100 ML BAG 200 MG IV (05:51)
[2024-10-18 05:55] LABS: Alanine Aminotransferase 17 U/L (10-49); Albumin, Serum 3.1 gm/dL (3.4-4.8); Albumin/Globulin Ratio 1.9 (1.2-2.2); Alkaline Phosphatase 44 U/L (46-116); Anion Gap 8 (7-16); Aspartate Amino Transferase 28 U/L (0-34); BUN/Creatinine Ratio 10 Ratio (12-20); Bilirubin,Total 0.9 mg/dL (0.3-1.2); Blood Urea Nitrogen 7 mg/dL (9-23); Calcium 8.3 mg/dL (8.3-10.6); Calcium (Corrected) 9.0 mg/dL (8.5-10.1); Carbon Dioxide 26.3 mMol/L (20.0-31.0); Chloride 108 mMol/L (98-107); Creatinine (Component) 0.7 mg/dL (0.6-1.3); Estimated Creatinine Clearance 53.9 mL/min (>60); Globulin 1.6 gm/dL (2.3-3.5); Glucose 98 mg/dL (74-106); Magnesium 1.8 mg/dL (1.6-2.6); Osmolality,Calculated 281 (275-295); Phosphorous 2.9 mg/dL (2.4-5.1); Potassium 3.3 mMol/L (3.4-5.1); Sodium 142 mMol/L (136-145); Total Protein 4.7 gm/dL (5.7-8.2); eGFR > 60 See Note
[2024-10-18 07:45] VITALS: PULSE 74; RESP 20; O2SAT 98
[2024-10-18 08:00] VITALS: BP 129/75; PULSE 73; RESP 16; TEMP 36.7; O2SAT 99
[2024-10-18] MEDS: cefTRIAXone/D5w 1gm IV premix 1 GM/50 ML BAG IV (08:12)
[2024-10-18] MEDS: DOCUSATE SOD 100 MG CAPSULE PO (08:12)
[2024-10-18 12:00] VITALS: BP 135/82; PULSE 71; RESP 18; TEMP 36.9; O2SAT 96
--- NOTE | 2024-10-18 12:50 | PD.SURPROG ---
Documentation for date of: 10/18/24 Subjective Subjective Narrative: Patient was seen today because I was covering for Dr Martinez who performed the surgery. She does not have any significant complaints. She has passed flatus Exam Vital Signs Temp Pulse Resp BP Pulse Ox O2 Del Method O2 Flow Rate 98.1 F 73 16 129/75 99 Room Air 2 10/18/24 08:00 10/18/24 08:00 10/18/24 08:00 10/18/24 08:00 10/18/24 08:00 10/18/24 08:00 10/17/24 04:00 FiO2 30 10/17/24 04:00 Her vital signs are normal Routine Abdominal Exam Comments: Abdominal examination shows few hypoactive bowel Results Results: Laboratory Laboratory Narrative: Lab results normal except potassium of 3.3 Assessment & Plan Assessment Additional comments: Impression: Status post small bowel obstruction treated with surgery Plan Plan: We shall discharge the patient once she is able to tolerate the diet. PROCEDURES: Procedures Exploratory laparotomy, lysis of adhesions
--- NOTE | 2024-10-18 14:40 | PD.RESDS ---
Planned Discharge Date 10/18/24 DS: Providers Provider Date of admission: 10/13/24 04:50 Primary care physician: Oumar Gomes MD Admitting Provider: Raphael Bains MD Attending Provider on Admission: Fortunato Paris MD Consults: 10/13/24 04:53 Consult to General Surgery Stat Comment: Consulting Provider: Faizan Martinez 10/16/24 09:40 Referral Registered Dietitian Routine Comment: 10/17/24 08:44 Referral Physical Therapy Routine Comment: Physician Instructions: Attending Provider on DC: Fortunato Paris MD Discharging Provider: Fortunato Paris MD DS: Diagnosis Problem List Completed Was Problem List Reviewed/Reconciled?: Yes Hospital Course Hospital Course Hospital course: Elaina is a 68-year-old female with past medical history of diabetes, hiatal hernia, hypertension, hyperlipidemia who was admitted to [facility] on 10/13/2024 for SBO s/p exploratory laprotomy and lysis of adhesions. Pt arrived to the ED with a BP 146/80, HR 78, RR 22, saturating 100% on room air. Pt was worked up and was found to have CBC unremarkable, T. bili 1.9, AST 38, UA negative, CT scan abdomen pelvis shows small bowel obstruction. Pt was treated with 1L NS bolus, and Toradol x1. General Surgery was consulted who recommended small bowel series and admission. Medicine was consulted and pt was admitted to the floors. While on the floors, Small bowel series showed complete mechanical bowel obstruction. Pt underwent surgery performed by Dr. Martinez for exploratory laprotomy on 10/15/2024. It was found that pt had adhesion near distal ileum surrounding small bowel which was lysed. Pt was then transferred from PACU to the floors for recovery. While on the floors, pt recovered and was treated with pain control, was seen by physical therapy and diet was advanced to full diet. Pt on 10/18 had small smear of bowel movement and then a full liquid BM in which we were comfortable discharging the patient at the time. Pt's etiology of SBO likely related to adhesions that could of formed from pt's previous surgical hx of and hysterectomy. Pt was then discharged with the following instructions. Discharge Instructions: Follow up with your PCP within one week Follow up with General Surgery, Dr. Martinez, within one week of discharge Take your medicines as prescribed Encourage ambulation for recovery Return to ER if your symptoms worsen or return Problem List: #SBO s/p exploratory laprotomy and lysis of adhesions #Diabetes mellitus type 2 #Depression #Hypertension #Hyperlipidemia #Hypothyroidism Patient seen and care discussed with my attending physician, Dr. Raina Solitario, PGY-2 Time Spent with Patient Time attestation: Total time spent providing and/or coordinating discharge services: Time spent: Less than 30 minutes Exam Vital Signs Temp Pulse Resp BP Pulse Ox O2 Del Method O2 Flow Rate 98.4 F 71 18 135/82 H 96 Room Air 2 10/18/24 12:00 10/18/24 12:00 10/18/24 12:00 10/18/24 12:00 10/18/24 12:00 10/18/24 12:00 10/17/24 04:00 FiO2 30 10/17/24 04:00 Narrative Exam General appearance: a&o X 3, in no apparent distress. HEENT/Neck examination: Normocephalic. Hearing normal. Moist mucous membranes. Chest/Lung examination: Chest wall normal, diaphragm and chest move equally and symmetrically with respiration. No abnormality on auscultation. Heart/Cardiovascular: examination S1 and S2 normal. No murmurs, rubs, or gallops, or extra sounds. No jugular venous distension. Blood pressure equal in both arms. Abdominal examination: Bowel sounds normal; no bruits. No masses or tenderness. Liver and spleen not palpable. No hernias. Neurologic/Psychologic examination: Mental status normal. Moving all 4 limbs well. Discharge Plan Plan Patient Disposition: HOME (Self Care) Patient condition on transfer: Stable Care Plan Goals: Discharge Instructions: Follow up with your PCP within one week Follow up with General Surgery, Dr. Martinez, within one week of discharge Take your medicines as prescribed Encourage ambulation for recovery Return to ER if your symptoms worsen or return Prescriptions/Referrals Prescriptions/Med Rec: Continued citalopram 20 mg tablet 20 mg PO DAILY verapamil 120 mg tablet extended release 120 mg PO HS Patient Comments: TAKE 1 TABLET BY MOUTH EVERY DAY FOR 90 DAYS atorvastatin 40 mg tablet 40 mg PO HS pantoprazole 40 mg tablet,delayed release (DR/EC) 40 mg PO DAILY levothyroxine 25 mcg tablet 25 mcg PO DAILY cholecalciferol (vitamin D3) [Vitamin D3] 125 mcg (5,000 unit) tablet 125 mcg PO DAILY magnesium 250 mg tablet 250 mg PO DAILY pyridoxine (vitamin B6) [Vitamin B-6] 100 mg tablet 100 mg PO DAILY Discontinued meclizine 25 mg tablet 25 mg PO Q6HR PRN (Reason: dizziness) Qty: 30 0RF Referrals: Oumar Gomes MD [Primary Care Provider] - Patient/Caregiver Discharge Instructions Discharge Activity: activity as tolerated Education Materials: Small Bowel Obstruction, Exploratory Laparotomy, How the Colon Works Print Language: [place] Stand Alone Forms: Mi Award Info., Patient Portal Info Letter Discharge Order Discharge Orders: Discharge (Routine); Ordered 10/18/24 Ordered By: Gonzales Solitario Quality Discharge Quality Measures VTE prophylaxis (SCDs) Attestestation MD Attestation I attest that I was physically present for the evaluation, physical examination, lab and imaging review of the patient with the residents. I discussed the case with the residents and agree with the findings and plans of care as documented above. Fortunato Paris MD
== END 2024-10-18 15:59 | disposition home or self-care (01) | DRG 328 ==
LOC: SERX 10-13 04:44 → SERHOLD 10-13 05:09 → S3SX 10-13 10:56
PROVIDERS: Physician Assistant; Student in an Organized Health Care Education/Training Program; Surgery; Admitting Provider Internal Medicine; Emergency Provider Emergency Medicine; PCP Family Medicine; Visit Provider Student in an Organized Health Care Education/Training Program
PROC: 0DN60ZZ Release Stomach, Open Approach (ICD-10-PCS; CPT 49000; principal; 2024-10-15 13:00)
DX: K56.52 Intestinal adhesions [bands] with complete obstruction (principal); E11.9 Type 2 diabetes mellitus without complications; I10 Essential (primary) hypertension; K44.9 Diaphragmatic hernia without obstruction or gangrene; E03.9 Hypothyroidism, unspecified; F32.A Depression, unspecified; E78.00 Pure hypercholesterolemia, unspecified; Z90.710 Acquired absence of both cervix and uterus; E66.9 Obesity, unspecified; Z79.899 Other long term (current) drug therapy; Z79.84 Long term (current) use of oral hypoglycemic drugs; Z68.25 Body mass index [BMI] 25.0-25.9, adult
CPT/HCPCS: 36415; 74018; 74022; 74177; 74250; 80053; 81001; 83036; 83605; 83690; 83735; 84100; 84484; 85025; 93005; 94660; 96361; 96365; 96366; 96368; 96375; 97161; 99285; A4217; A4649; J0131; J0694; J0696; J1885; J2250; J2270; J2371; J2405; J2470; J2704; J2765; J3010; J3480; J3490; J7030; J7050; J7070; Q9963; Q9967; A9270; J1836